=== PATIENT | male | born 1965 | race Caucasian/White ===

== ENCOUNTER 2019-08-04 12:30 | Emergency (ER) | payer BC, OTHER ==
[2019-08-04 12:43] VITALS: BP 131/89; PULSE 78
[2019-08-04] MEDS ORDERED: Albuterol/Ipratropium 3.0-0.5 MG/3 ML Neb Soln NEB ONE (13:15)
--- NOTE | 2019-08-04 13:27 | EDM.PDOC ---
ED HPI GENERAL MEDICAL PROBLEM - General Chief Complaint: Respiratory Problem Stated Complaint: COUGH/SOB Time Seen by Provider: 08/04/19 13:03 Source of Information: Reports: Patient, RN Notes Reviewed History Limitations: Reports: No Limitations - History of Present Illness INITIAL COMMENTS - FREE TEXT/NARRATIVE: Patient is a 53-year-old male who presents to the ED for his ongoing cough. Patient notes he was evaluated by a provider in our clinic roughly 2 weeks ago and was found to have an ear infection and some wheezing, he was given a round of azithromycin, and an albuterol inhaler. Patient states that he has been having to use his albuterol inhaler, but states it has not been working well for the last couple days. He notes that he has been wheezing, seems to be worse at night. He did have a productive cough yesterday with some yellowish phlegm, but the cough has been pretty dry today. He states that his ear did get better, but this cough has lingered. He is not complaining of any fevers or chills, more chest discomfort than chest pain due to the cough. He is not experiencing any nausea/vomiting/diarrhea, and has had no other like sick contacts. - Related Data Allergies Allergy/AdvReac Type Severity Reaction Status Date / Time No Known Allergies Allergy Verified 08/04/19 12:43 Home Meds: Home Meds Fish Oil/[place]-3 Fatty Acids [Fish Oil 1,000 MG] 1 gm PO DAILY 03/17/18 [History ] Meclizine [Antivert] 25 mg PO TID PRN 03/17/18 [History] Multivitamin [Daily Jhonatan] 1 tab PO DAILY 03/17/18 [History] Tamsulosin HCl 0.4 mg PO BEDTIME 03/17/18 [History] Cholecalciferol (Vitamin D3) [Vitamin D] 5,000 unit PO DAILY 12/06/18 [History] Cyanocobalamin (Vitamin B12) [Vitamin B12] 500 mcg PO DAILY 12/06/18 [History] Albuterol [Ventolin HFA] 2 puff .XX QID PRN #1 inhaler 08/04/19 [Rx] Ubidecarenone/Vitamin E [Co Q-10 50 MG Softgel] 1 cap PO DAILY 08/04/19 [History ] methylPREDNISolone [Medrol Dose Pack] 4 mg PO ASDIRECTED #1 dospk 08/04/19 [Rx] Past Medical History HEENT History: Reports: Impaired Vision Cardiovascular History: Reports: High Cholesterol Respiratory History: Reports: Sleep Apnea Other Respiratory History: seasonal allergies Gastrointestinal History: Reports: Other (See Below) Other Gastrointestinal History: gastric ulcer-1996 Genitourinary History: Reports: Prostate Disorder Other Genitourinary History: vasectomy Neurological History: Reports: Vertigo Endocrine/Metabolic History: Reports: Obesity/BMI 30+, Other (See Below) Other Endocrine/Metabolic History: metabolic X syndrome - Infectious Disease History Infectious Disease History: Reports: Chicken Pox - Past Surgical History HEENT Surgical History: Reports: Tonsillectomy GI Surgical History: Reports: EGD Social & Family History - Family History Family Medical History: Noncontributory - Tobacco Use Smoking Status *Q: Never Smoker Second Hand Smoke Exposure: No - Caffeine Use Caffeine Use: Reports: Coffee, Soda - Recreational Drug Use Recreational Drug Use: No - Living Situation & Occupation Living situation: Reports: Occupation: Employed ED ROS GENERAL - Review of Systems Review Of Systems: See Below Constitutional: Denies: Fever, Chills Respiratory: Reports: Wheezing, Cough, Sputum. Denies: Shortness of Breath Cardiovascular: Reports: Chest Pain (chest discomfort) GI/Abdominal: Denies: Abdominal Pain, Constipation, Diarrhea, Nausea, Vomiting ED EXAM, GENERAL - Physical Exam Exam: See Below Exam Limited By: No Limitations General Appearance: Alert, WD/WN, No Apparent Distress Eye Exam: Bilateral Eye: EOMI, Normal Inspection, PERRL Ears: Normal External Exam, Normal Canal, Hearing Grossly Normal, Normal TMs Nose: Normal Inspection Throat/Mouth: Normal Inspection, Normal Lips, Normal Teeth, Normal Gums, Normal Oropharynx, Normal Voice, No Airway Compromise Head: Atraumatic, Normocephalic Neck: Normal Inspection Respiratory/Chest: No Respiratory Distress, No Accessory Muscle Use, Chest Non- Tender, Rhonchi (throughout both lung rdz), Wheezing (tight, end expiratory wheezing throughout both lung rdz) Cardiovascular: Normal Peripheral Pulses, Regular Rate, Rhythm, No Edema, No Murmur Peripheral Pulses: 3+: Radial (L), Radial (R) GI/Abdominal: Normal Bowel Sounds, Soft, Non-Tender, No Distention, No Mass Extremities: Normal Inspection, Normal Capillary Refill Neurological: Alert, Oriented, Normal Cognition, No Motor/Sensory Deficits Psychiatric: Normal Affect, Normal Mood Skin Exam: Warm, Dry, Intact, Normal Color, No Rash Course - Vital Signs Last Recorded V/S: Last Vital Signs Temp 97.5 F 08/04/19 12:40 Pulse 78 08/04/19 12:40 Resp 22 H 08/04/19 12:40 BP 131/89 08/04/19 12:40 Pulse Ox 96 08/04/19 13:15 - Orders/Labs/Meds Orders: Active Orders 24 hr Category Date Time Status RT Aerosol Therapy [RC] ASDIRECTED Care 08/04/19 13:15 Ordered CBC WITH MANUAL DIFF [HEME] Stat Lab 08/04/19 13:06 Ordered Labs: Laboratory Tests 08/04/19 08/04/19 Range/Units 13:29 13:29 WBC 5.33 (4.23-9.07) K/mm3 RBC 5.00 (4.63-6.08) M/mm3 Hgb 14.8 (13.7-17.5) gm/dl Hct 44.6 (40.1-51.0) % MCV 89.2 (79.0-92.2) fl MCH 29.6 (25.7-32.2) pg MCHC 33.2 (32.2-35.5) g/dl RDW Std Deviation 42.8 (35.1-43.9) fL Plt Count 204 (163-337) K/mm3 MPV 9.2 L (9.4-12.3) fl Sodium 138 (136-145) mEq/L Potassium 4.3 (3.5-5.1) mEq/L Chloride 103 (98-107) mEq/L Carbon Dioxide 27 (21-32) mEq/L Anion Gap 12.3 (5-15) BUN 16 (7-18) mg/dL Creatinine 1.1 (0.7-1.3) mg/dL Est Cr Clr Drug Dosing 87.20 mL/min Estimated GFR (MDRD) > 60 (>60) mL/min BUN/Creatinine Ratio 14.5 (14-18) Glucose 112 H (74-106) mg/dL Calcium 9.0 (8.5-10.1) mg/dL Total Bilirubin 0.5 (0.2-1.0) mg/dL AST 24 (15-37) U/L ALT 42 (16-63) U/L Alkaline Phosphatase 66 (46-116) U/L Total Protein 7.8 (6.4-8.2) g/dl Albumin 3.8 (3.4-5.0) g/dl Globulin 4.0 gm/dL Albumin/Globulin Ratio 1.0 (1-2) Meds: Medications Discontinued Medications Generic Name Dose Route Start Last Admin Trade Name Freq PRN Reason Stop Dose Admin Albuterol/Ipratropium 3 ml 08/04/19 13:15 08/04/19 14:30 Duoneb 3.0-0.5 Mg/3 Ml NEB 08/04/19 13:16 3 ml ONETIME ONE Administration - Re-Assessments/Exams Free Text/Narrative Re-Assessment/Exam: 08/04/19 13:28 Patient presents to the ED for evaluation of ongoing cough, and wheezing. I have ordered a DuoNeb, chest x-ray, CBC and a CMP for evaluation and management. 08/04/19 14:30 Patient is chest x-ray is officially read by radiology, no consolidation or infiltrative processes noted. The patient's laboratory evaluation is also coming back fairly unremarkable, no elevated white blood cell count, metabolic panel looks okay. Will discharge the patient home with a course of steroids and another albuterol inhaler at this time. Departure - Departure Time of Disposition: 14:31 Disposition: Home, Self-Care 01 Condition: Fair Clinical Impression: Bronchitis - Discharge Information *PRESCRIPTION DRUG MONITORING PROGRAM REVIEWED*: No *COPY OF PRESCRIPTION DRUG MONITORING REPORT IN PATIENT ABBEY: No Prescriptions: Albuterol [Ventolin HFA] 2 puff .XX QID PRN #1 inhaler PRN Reason: cough/sob methylPREDNISolone [Medrol Dose Pack] 4 mg PO ASDIRECTED #1 dospk Instructions: Acute Bronchitis, Adult, [id number] Referrals: Polina Franz PA-C [Primary Care Provider] - Forms: ED Department Discharge Additional Instructions: You were evaluated in the ER today regarding your cough/shortness of breath/ wheezing. You had a chest x-ray, some laboratory evaluation and a nebulizer at today's visit. Chest x-ray shows no sign of pneumonia, and your laboratory evaluation was unremarkable. The nebulizer did seem to help provide you relieve some of your symptoms. It is likely that you are suffering from bronchitis, you have been provided with another albuterol inhaler, and a course of steroids, please take as directed. Recommend that you use the albuterol inhaler, 2 puffs 4 times a day for the next few days, then 2 puffs 3 times a day for the next few days, then 2 puffs 2 times a day, until you need it on a more of an as-needed basis. Please return to the ER at any time if symptoms should change or worsen. Sepsis Event Note - Evaluation Sepsis Screening Result: No Definite Risk - Focused Exam Vital Signs: Vital Signs Temp Pulse Resp BP Pulse Ox Pulse Ox 08/04/19 13:15 96 08/04/19 12:40 97.5 F 78 22 H 131/89 98 Date Exam was Performed: 08/04/19 Time Exam was Performed: 14:55 - My Orders Last 24 Hours: My Active Orders 08/04/19 13:06 CBC WITH MANUAL DIFF [HEME] Stat 08/04/19 13:15 RT Aerosol Therapy [RC] ASDIRECTED - Assessment/Plan Last 24 Hours: My Active Orders 08/04/19 13:06 CBC WITH MANUAL DIFF [HEME] Stat 08/04/19 13:15 RT Aerosol Therapy [RC] ASDIRECTED
--- NOTE | 2019-08-04 14:05 | CR ---
Chest: Two views of the chest were obtained. Comparison: No prior chest imaging is available. Heart size and mediastinum are normal. Lungs are clear with no acute parenchymal change. Minimal scoliosis is noted within the spine. Impression: 1. Nothing acute is appreciated on two-view chest x-ray. Diagnostic code #2 Study was dictated in MDT
== END 2019-08-04 15:16 | disposition home or self-care (01) ==
LOC: JD.ED 12:30
DX: J40 Bronchitis, not specified as acute or chronic (principal); E66.9 Obesity, unspecified; Z68.42 Body mass index [BMI] 45.0-49.9, adult
CPT/HCPCS: 36415; 71046; 71046-26; 80053; 85007; 85027; 94640; 99284-25; J7620-GY

== ENCOUNTER 2019-08-04 20:29 | Emergency (ER) | payer OTHER ==
[2019-08-04 20:39] VITALS: BP 139/79; PULSE 74
--- NOTE | 2019-08-04 21:13 | EDM.PDOC ---
ED HPI GENERAL MEDICAL PROBLEM - General Chief Complaint: Respiratory Problem Stated Complaint: COUGH SOB Time Seen by Provider: 08/04/19 20:49 Source of Information: Reports: Patient, Family (), Old Records (ED visit earlier today) History Limitations: Reports: No Limitations - History of Present Illness INITIAL COMMENTS - FREE TEXT/NARRATIVE: Mr. Michael is a very pleasant 53-year-old man with a past medical history significant for BPH, allergic rhinitis, and untreated dyslipidemia, who, medical records indicate, was seen in this ED earlier today with a complaint at that time of ear pain and wheezing 2 weeks earlier, treated with azithromycin and an albuterol inhaler. He reported that his wheezing seemed worse at night, and that the albuterol did not seem to be working. He then developed a cough productive of yellowish sputum yesterday. He denied fever or chills, nausea, vomiting, or diarrhea. He was found to be hemodynamically stable, afebrile, saturating 96% on room air. His examination found rhonchi and wheezing throughout his lungs. Work-up included a CBC, CMP, and a chest x-ray, which was read by the radiologist. His entire work-up was unremarkable. He was diagnosed with acute bronchitis, treated with an albuterol neb here in the ED, then discharged home with prescriptions for an albuterol MDI and a Medrol Dosepak. The patient now returns, stating that he felt better after he received the albuterol neb here in the ED, but since then, his symptoms have worsened, and he is not getting any relief with the albuterol. No new symptoms. Here in the ED, the patient is again found to be hemodynamically stable, afebrile, saturating 96% on room air. The patient's PCP is LI Alexander, although he saw LI Cuevas, 2 weeks ago. He did not receive an influenza vaccine this season and declined an offer to receive one here today. - Related Data Allergies Allergy/AdvReac Type Severity Reaction Status Date / Time No Known Allergies Allergy Verified 08/04/19 12:43 Home Meds: Home Meds Fish Oil/[place]-3 Fatty Acids [Fish Oil 1,000 MG] 1 gm PO DAILY 03/17/18 [History ] Meclizine [Antivert] 25 mg PO TID PRN 03/17/18 [History] Multivitamin [Daily Jhonatan] 1 tab PO DAILY 03/17/18 [History] Tamsulosin HCl 0.4 mg PO BEDTIME 03/17/18 [History] Cholecalciferol (Vitamin D3) [Vitamin D] 5,000 unit PO DAILY 12/06/18 [History] Cyanocobalamin (Vitamin B12) [Vitamin B12] 500 mcg PO DAILY 12/06/18 [History] Albuterol [Ventolin HFA] 2 puff .XX QID PRN #1 inhaler 08/04/19 [Rx] Ubidecarenone/Vitamin E [Co Q-10 50 MG Softgel] 1 cap PO DAILY 08/04/19 [History ] methylPREDNISolone [Medrol Dose Pack] 4 mg PO ASDIRECTED #1 dospk 08/04/19 [Rx] Past Medical History HEENT History: Reports: Allergic Rhinitis, Impaired Vision Cardiovascular History: Reports: High Cholesterol (untreated) Respiratory History: Reports: Sleep Apnea Gastrointestinal History: Reports: DAVID (1996) Genitourinary History: Reports: BPH Endocrine/Metabolic History: Reports: Obesity/BMI 30+ - Infectious Disease History Infectious Disease History: Reports: Chicken Pox - Past Surgical History HEENT Surgical History: Reports: Oral Surgery (wisdom teeth extraction), Tonsillectomy GI Surgical History: Reports: EGD Male Surgical History: Reports: Vasectomy Social & Family History - Family History Family Medical History: Noncontributory - Tobacco Use Smoking Status *Q: Never Smoker Second Hand Smoke Exposure: No - Caffeine Use Caffeine Use: Reports: Coffee, Soda - Alcohol Use Alcohol Use History: Yes Alcohol Use Frequency: Socially - Recreational Drug Use Recreational Drug Use: No - Living Situation & Occupation Living situation: Reports: , with Spouse, with Family (Daughter, son-in- law, grandson) 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 ED EXAM, GENERAL - Physical Exam Exam: See Below Exam Limited By: No Limitations General Appearance: Alert, WD/WN, No Apparent Distress Eye Exam: Bilateral Eye: EOMI, Normal Inspection Ears: Normal External Exam, Normal Canal, Hearing Grossly Normal, Normal TMs Nose: Normal Inspection, Normal Mucosa, No Blood Throat/Mouth: Normal Inspection, Normal Lips, Normal Teeth, Normal Gums, Normal Oropharynx, Normal Voice, No Airway Compromise Head: Atraumatic, Normocephalic Neck: Normal Inspection, Supple, Non-Tender, Full Range of Motion. No: Lymphadenopathy (L), Lymphadenopathy (R) Respiratory/Chest: No Respiratory Distress, Lungs Clear, Normal Breath Sounds, No Accessory Muscle Use, Rhonchi, Wheezing. No: Decreased Breath Sounds, Crackles, Stridor, Prolonged Expiration Cardiovascular: Normal Peripheral Pulses, Regular Rate, Rhythm, No Edema, No Gallop, No JVD, No Murmur, No Rub Peripheral Pulses: 4+: Radial (L), Radial (R) GI/Abdominal: Normal Bowel Sounds, Soft, Non-Tender, No Organomegaly, No Distention, No Abnormal Bruit, No Mass (Male) Exam: Deferred Rectal (Males) Exam: Deferred Back Exam: Normal Inspection, Full Range of Motion, NT Extremities: Normal Inspection, Normal Range of Motion, No Pedal Edema, Normal Capillary Refill Neurological: Alert, Oriented, Normal Cognition, No Motor/Sensory Deficits Psychiatric: Normal Affect Skin Exam: Warm, Dry, Intact, Normal Color, No Rash Course - Vital Signs Last Recorded V/S: Last Vital Signs Temp 36.4 C 08/04/19 20:36 Pulse 74 08/04/19 20:36 Resp 20 08/04/19 20:36 BP 139/79 08/04/19 20:36 Pulse Ox 96 08/04/19 20:36 - Re-Assessments/Exams Free Text/Narrative Re-Assessment/Exam: 08/04/19 21:08 With a cough productive of yellowish sputum, wheezing made worse when supine, dyspnea, and a negative work-up earlier today including a normal white count and a negative chest x-ray, along with being afebrile with 96% oxygenation on room air, I agree with LI Newton's assessment from earlier today that the patient is suffering from bronchitis. Unfortunately, there are no medicines that have been shown to be of benefit with bronchitis - not NSAIDs, steroids, albuterol, ipratropium, antibiotics, or cough syrups, and all have been extensively tried and tested. Unfortunately, the only treatment for bronchitis is time. Typically, the illness resolves in 2 to 3 weeks. This was explained to the patient and his , who expressed understanding. Departure - Departure Time of Disposition: 21:13 Disposition: Home, Self-Care 01 Condition: Good Clinical Impression: Acute bronchitis - Discharge Information *PRESCRIPTION DRUG MONITORING PROGRAM REVIEWED*: Not Applicable *COPY OF PRESCRIPTION DRUG MONITORING REPORT IN PATIENT ABBEY: Not Applicable Referrals: Polina Franz PA-C [Primary Care Provider] - Additional Instructions: You were seen in the emergency room for wheezing, a cough, and shortness of breath. Based on your history, physical exam, and earlier blood work and chest x-ray, you are most likely suffering from bronchitis = a viral infection of the tubes that lead into your lungs. Unfortunately, there are no medicines to treat bronchitis - it will have to run its course, which typically takes 2 to 3 weeks. We recommend that you discontinue the albuterol and steroids that you were prescribed this morning, as they will be of no benefit. Consider sleeping in a recliner, as lying flat will tend to worsen your symptoms. If any other problems, please do not hesitate to return to the ER. Sepsis Event Note - Evaluation Sepsis Screening Result: No Definite Risk - Focused Exam Vital Signs: Vital Signs Temp Pulse Resp BP Pulse Ox 08/04/19 20:36 36.4 C 74 20 139/79 96 Date Exam was Performed: 08/04/19 Time Exam was Performed: 21:08
== END 2019-08-04 21:30 | disposition home or self-care (01) ==
LOC: JD.ED 20:29
DX: J20.9 Acute bronchitis, unspecified (principal); E66.9 Obesity, unspecified; Z68.41 Body mass index [BMI] 40.0-44.9, adult
CPT/HCPCS: 99284

== ENCOUNTER 2020-04-17 08:21 | Emergency (ER) | payer OTHER ==
[2020-04-17 08:50] VITALS: BP 125/84; PULSE 66
[2020-04-17] MEDS ORDERED: Sodium Chloride 0.9% 10 ML Syringe FLUSH PRN (08:53)
--- NOTE | 2020-04-17 08:58 | EDM.PDOC ---
ED HPI GENERAL MEDICAL PROBLEM - General Chief Complaint: Respiratory Problem Stated Complaint: SOB AND HEART ISSUES REFERRED BY CLINIC Time Seen by Provider: 04/17/20 08:45 Source of Information: Reports: Patient History Limitations: Reports: No Limitations - History of Present Illness INITIAL COMMENTS - FREE TEXT/NARRATIVE: 54-year-old male presents to the ED for evaluation of shortness of breath on minimal exertion and wheezing. Patient reports he was in [place] last week over the holidays for . He estimates altitude of the cabin was around 6000 feet. On Friday evening he developed shortness of breath and went to the local hospital where they felt he may have high-altitude illness. He was treated with intravenous Lasix and a dose of dexamethasone intravenously and then given an oral dose of dexamethasone the following morning. He reports he got home last night. This morning he feels a little more short of breath on minimal exertion than normal. He does have a nonproductive cough. Nasally congested. Afebrile. Bringing up very minimal amount of sputum. No fever or chills. He did have a COVID-19 screen out in [place] which was reportedly -2 days ago. Patient appreciates that he has been experiencing mild dyspnea on exertion for the better part of a month or 6 weeks. No orthopnea or PND. Known no known history of cardiac disease. He appreciated edema both lower extremities last week. Feels they are better today. Patient has no history of asthma. No previous problems with high-altitude sickness. Onset: Gradual Onset Date: 04/14/20 Duration: Day(s):, Getting Worse Location: Reports: Face (Nasal congestion with postnasal drip.), Chest (Shortness of breath with minimal sputum production dry cough.) Quality: Reports: Other Severity: Moderate Improves with: Reports: Rest Worsens with: Reports: Other Context: Denies: Activity, Exercise (Symptoms worsen with exertion or walking.), Lifting, Sick Contact, Trauma, Other Associated Symptoms: Reports: Cough (Animal sputum production.), cough w sputum, Shortness of Breath. Denies: No Other Symptoms, Confusion ( Dry nonproductive cough.), Chest Pain, Diaphoresis, Fever/Chills, Headaches, Loss of Appetite, Malaise, Nausea/Vomiting, Rash, Seizure, Syncope, Weakness Treatments SHOW HOST: Reports: Other (see below) (Dexamethasone early Friday morning 2 days ago as prescribed by physician in [place].) - Related Data Allergies Allergy/AdvReac Type Severity Reaction Status Date / Time No Known Allergies Allergy Verified 04/17/20 08:51 Home Meds: Home Meds Meclizine [Antivert] 25 mg PO TID PRN 03/17/18 [History] Multivitamin [Daily Jhonatan] 1 tab PO DAILY 03/17/18 [History] Tamsulosin HCl 0.4 mg PO BEDTIME 03/17/18 [History] Cholecalciferol (Vitamin D3) [Vitamin D] 5,000 unit PO DAILY 12/06/18 [History] Cyanocobalamin (Vitamin B12) [Vitamin B12] 500 mcg PO DAILY 12/06/18 [History] Ubidecarenone/Vitamin E [Co Q-10 50 MG Softgel] 1 cap PO DAILY 08/04/19 [History] Albuterol Sulfate [Albuterol Sulfate Hfa] 18 gm IH Q3H PRN #1 hfa.aer.ad 04/17/20 [Rx] dexAMETHasone [Decadron] 6 mg PO ASDIRECTED #18 tablet 04/17/20 [Rx] Past Medical History HEENT History: Reports: Allergic Rhinitis, Impaired Vision, Other (See Below) (Chronic problems with benign positional vertigo.) Cardiovascular History: Reports: High Cholesterol (untreated) Respiratory History: Reports: Sleep Apnea Other Respiratory History: seasonal allergies Gastrointestinal History: Reports: PUD (1996) Other Gastrointestinal History: gastric ulcer-1996 Genitourinary History: Reports: BPH Other Genitourinary History: vasectomy Musculoskeletal History: Reports: None Neurological History: Reports: Vertigo Psychiatric History: Reports: None Endocrine/Metabolic History: Reports: Obesity/BMI 30+ Other Endocrine/Metabolic History: metabolic X syndrome Hematologic History: Reports: None Immunologic History: Reports: None Oncologic (Cancer) History: Reports: None Dermatologic History: Reports: None - Infectious Disease History Infectious Disease History: Reports: Chicken Pox - Past Surgical History HEENT Surgical History: Reports: Oral Surgery (wisdom teeth extraction), Tonsillectomy GI Surgical History: Reports: EGD Male Surgical History: Reports: Vasectomy Social & Family History - Family History Family Medical History: No Pertinent Family History - Caffeine Use Caffeine Use: Reports: Coffee, Soda - Living Situation & Occupation Living situation: Reports: , with Spouse, with Family (Daughter, son-in-law, grandson) 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 Denies: Fever, Chills, Weakness, Night Sweats, Diaphoresis, Decreased Appetite, Weight Loss, Weight Gain HEENT: Reports: Other (Nasal congestion at this time) Respiratory: Reports: Shortness of Breath, Wheezing, Cough. Denies: Pleuritic Chest Pain, Sputum (Nonproductive), Hemoptysis Cardiovascular: Reports: Dyspnea on Exertion (Always has a little bit of swelling lower extremities.), Edema. Denies: Chest Pain, Blood Pressure Problem, Claudication, Lightheadedness, Orthopnea, Palpitations Endocrine: Reports: No Symptoms GI/Abdominal: Reports: No Symptoms, Other (Occasional heartburn.). Denies: Diarrhea, Nausea, Vomiting : Reports: Frequency, Other (Nocturia usually x1. Does have a diagnosis of BPH Is on Flomax daily.) Musculoskeletal: Reports: No Symptoms Skin: Reports: No Symptoms Neurological: Reports: No Symptoms Psychiatric: Reports: No Symptoms Hematologic/Lymphatic: Reports: No Symptoms Immunologic: Reports: No Symptoms ED EXAM, GENERAL - Physical Exam Exam: See Below Exam Limited By: No Limitations General Appearance: Alert, WD/WN, No Apparent Distress, Other (Temperature is 36.2 with a heart rate of 66 in sinus respiratory is 18 with O2 sats of 100% room air. BP 125/84. Patient does appear to have some facial edema pick involving his upper or lower eyelids.) Eye Exam: Bilateral Eye: Normal Inspection (No scleral icterus or blepharal pallor.), PERRL Ears: Normal TMs Throat/Mouth: Normal Inspection, Normal Lips, Normal Teeth, Normal Oropharynx Head: Atraumatic, Normocephalic Neck: Normal Inspection, Supple, Non-Tender, Full Range of Motion. No: Carotid Bruit, Lymphadenopathy (L), Lymphadenopathy (R) Respiratory/Chest: No Respiratory Distress, Lungs Clear, Decreased Breath Sounds (Decreased breath sounds to both lower lung rdz.), Wheezing. No: Rhonchi Cardiovascular: Normal Peripheral Pulses, Regular Rate, Rhythm, No Gallop, No Murmur, Other (Large bowl neck. No appreciable JVD.). No: No Edema Peripheral Pulses: 2+: Posterior Tibial (L), Posterior Tibial (R), Dorsalis Pedis (L), Dorsalis Pedis (R), 3+: Carotid (L), Carotid (R) GI/Abdominal: Normal Bowel Sounds, Soft, Non-Tender, No Organomegaly Back Exam: Normal Inspection, Full Range of Motion. No: CVA Tenderness (L), CVA Tenderness (R) Extremities: Normal Inspection, Pedal Edema (2+ pitting edema both lower extremities up to mid tib-fib. Slightly worse on the right this morning.) Neurological: Alert, Oriented, CN II-XII Intact, Normal Cognition Psychiatric: Normal Affect, Normal Mood Skin Exam: Warm, Dry, Intact, Normal Color, No Rash Course - Vital Signs Last Recorded V/S: Last Vital Signs Temp 36.2 C 04/17/20 08:40 Pulse 66 04/17/20 08:40 Resp 18 04/17/20 08:40 BP 125/84 04/17/20 08:40 Pulse Ox 100 04/17/20 11:52 - Orders/Labs/Meds Orders: Active Orders 24 hr Category Date Time Status CORONAVIRUS COVID-19 PCR PHL Stat Lab 04/17/20 10:10 Received Peripheral IV Insertion Adult [OM.PC] Stat Oth 04/17/20 08:54 Ordered Labs: Laboratory Tests 04/17/20 04/17/20 04/17/20 Range/Units 09:25 09:25 09:25 WBC 6.95 (4.23-9.07) K/mm3 RBC 4.86 (4.63-6.08) M/mm3 Hgb 14.6 (13.7-17.5) gm/dl Hct 43.6 (40.1-51.0) % MCV 89.7 (79.0-92.2) fl MCH 30.0 (25.7-32.2) pg MCHC 33.5 (32.2-35.5) g/dl RDW Std Deviation 43.6 (35.1-43.9) fL Plt Count 176 (163-337) K/mm3 MPV 9.7 (9.4-12.3) fl Neut % (Auto) 49.9 (34.0-67.9) % Lymph % (Auto) 30.2 (21.8-53.1) % [place] % (Auto) 10.4 (5.3-12.2) % Eos % (Auto) 8.9 H (0.8-7.0) Baso % (Auto) 0.6 (0.1-1.2) % Neut # (Auto) 3.47 (1.78-5.38) K/mm3 Lymph # (Auto) 2.10 (1.32-3.57) K/mm3 [place] # (Auto) 0.72 (0.30-0.82) K/mm3 Eos # (Auto) 0.62 H (0.04-0.54) K/mm3 Baso # (Auto) 0.04 (0.01-0.08) K/mm3 PT 10.3 (9.7-12.0) SECONDS INR 0.96 APTT 27.1 (21.7-31.4) SECONDS D-Dimer, Quantitative (0.19-0.50) mg/L Sodium 139 (136-145) mEq/L Potassium 3.9 (3.5-5.1) mEq/L Chloride 104 (98-107) mEq/L Carbon Dioxide 26 (21-32) mEq/L Anion Gap 12.9 (5-15) BUN 21 H (7-18) mg/dL Creatinine 1.2 (0.7-1.3) mg/dL Est Cr Clr Drug Dosing 79.04 mL/min Estimated GFR (MDRD) > 60 (>60) mL/min BUN/Creatinine Ratio 17.5 (14-18) Glucose 91 (74-106) mg/dL Calcium 8.3 L (8.5-10.1) mg/dL Magnesium 1.9 (1.8-2.4) mg/dl Ferritin (26-388) ng/ml Total Bilirubin 0.3 (0.2-1.0) mg/dL AST 10 L (15-37) U/L ALT 32 (16-63) U/L Alkaline Phosphatase 59 (46-116) U/L Lactate Dehydrogenase 168 (85-227) U/L CK-MB (CK-2) 1.6 (0-3.6) ng/ml Troponin I < 0.017 (0.00-0.056) ng/mL C-Reactive Protein 0.4 (<1.0) mg/dL NT-Pro-B Natriuret Pep (0-125) pg/mL Total Protein 7.0 (6.4-8.2) g/dl Albumin 3.4 (3.4-5.0) g/dl Globulin 3.6 gm/dL Albumin/Globulin Ratio 0.9 L (1-2) 04/17/20 04/17/20 04/17/20 Range/Units 09:25 09:25 09:25 WBC (4.23-9.07) K/mm3 RBC (4.63-6.08) M/mm3 Hgb (13.7-17.5) gm/dl Hct (40.1-51.0) % MCV (79.0-92.2) fl MCH (25.7-32.2) pg MCHC (32.2-35.5) g/dl RDW Std Deviation (35.1-43.9) fL Plt Count (163-337) K/mm3 MPV (9.4-12.3) fl Neut % (Auto) (34.0-67.9) % Lymph % (Auto) (21.8-53.1) % [place] % (Auto) (5.3-12.2) % Eos % (Auto) (0.8-7.0) Baso % (Auto) (0.1-1.2) % Neut # (Auto) (1.78-5.38) K/mm3 Lymph # (Auto) (1.32-3.57) K/mm3 [place] # (Auto) (0.30-0.82) K/mm3 Eos # (Auto) (0.04-0.54) K/mm3 Baso # (Auto) (0.01-0.08) K/mm3 PT (9.7-12.0) SECONDS INR APTT (21.7-31.4) SECONDS D-Dimer, Quantitative 0.43 (0.19-0.50) mg/L Sodium (136-145) mEq/L Potassium (3.5-5.1) mEq/L Chloride (98-107) mEq/L Carbon Dioxide (21-32) mEq/L Anion Gap (5-15) BUN (7-18) mg/dL Creatinine (0.7-1.3) mg/dL Est Cr Clr Drug Dosing mL/min Estimated GFR (MDRD) (>60) mL/min BUN/Creatinine Ratio (14-18) Glucose (74-106) mg/dL Calcium (8.5-10.1) mg/dL Magnesium (1.8-2.4) mg/dl Ferritin 137 (26-388) ng/ml Total Bilirubin (0.2-1.0) mg/dL AST (15-37) U/L ALT (16-63) U/L Alkaline Phosphatase (46-116) U/L Lactate Dehydrogenase (85-227) U/L CK-MB (CK-2) (0-3.6) ng/ml Troponin I (0.00-0.056) ng/mL C-Reactive Protein (<1.0) mg/dL NT-Pro-B Natriuret Pep 54 (0-125) pg/mL Total Protein (6.4-8.2) g/dl Albumin (3.4-5.0) g/dl Globulin gm/dL Albumin/Globulin Ratio (1-2) Meds: Medications Discontinued Medications Generic Name Dose Route Start Last Admin Trade Name Freq PRN Reason Stop Dose Admin Albuterol/Ipratropium 3 ml 04/17/20 11:52 04/17/20 12:08 Duoneb 3.0-0.5 Mg/3 Ml NEB 3 ml Q4H PRN Administration Shortness Of Breath/wheezing Furosemide 40 mg 04/17/20 09:34 04/17/20 11:03 Lasix IVPUSH 04/17/20 09:35 40 mg NOW ONE Administration Sodium Chloride 10 ml 04/17/20 08:53 04/17/20 11:04 Saline Flush FLUSH 10 ml ASDIRECTED PRN Administration Keep Vein Open - Radiology Interpretation Free Text/Narrative:: 54-year-old male presents to the ED for evaluation of nasal congestion shortness of breath on minimal exertion nonproductive cough with wheezing. States he just got home from [place] where [place] the [place] 6 days for the . On Friday evening he had to leave the cabin and go to the clinic emergency room and they felt he may have high- altitude sickness although he reports the cabin is probably around 6000 feet elevation. He has been there many times in the past with no problems and. He is nasally congested with retention of his sense of taste and smell. On exam he is wheezing throughout both lung rdz. Does have some dependent edema both lower extremities up to mid tib-fib. Face appears to be edematous as well particularly upper eyelids. Of note he did receive a dose of intravenous steroids as well as an oral steroid to take on the following morning Friday, February 13. No orthopnea last night. No history of asthma. Plan patient will have cardiac work-up to make sure that he does not have congestive heart failure causing his wheeze. COVID-19 screen will be a send out to [facility] since his O2 sats are 100% on room air. - Re-Assessments/Exams Free Text/Narrative Re-Assessment/Exam: 04/17/20 09:33 x-ray reveals marked cardiomegaly. Diffuse vascular congestion pattern no pleural effusion no pneumothorax. Clinically patient has a thoracic and abdominal aortic aneurysm. Mild infiltrates RLL. Consider Covid viral pneumonia. 04/17/20 11:48 White count is normal at 6.95. Neutrophil count is 50%. Hemoglobin 14.6 with hematocrit of 43.6. Platelet count 176,000. PT is 10.3 with an INR of 0.96. PTT is 27.1 D-dimer is normal at 0.43. Sodium is 139 with a potassium of 3.9. Chloride 104 with a bicarb of 26. Anion gap is 12.9. BUN is 21 with a creatinine of 1.2 and a GFR greater than 60. Glucose is 91 with a calcium of 8.3 magnesium is 1.9. Serum ferritin is 137. Liver function normal. LDH is 168. CK-MB fraction is normal at 1.6. Troponin I is less than 0.017. C-reactive protein is 0.4. BNP is 54. Covid 19 screen has been sent to [facility]. 04/17/20 12:55: Clinically there is no evidence of COVID-19 at this time with normal LDH and serum ferritin levels. Patient is definitely wheezing throughout both lung rdz. There is opposition to giving patient's aerosolized medication with the possibility of COVID-19 illness. Patient will be started on albuterol metered-dose inhaler 2 puffs every 3 hours as needed for shortness of breath and/or wheezing. He will be placed on dexamethasone 6 mg twice daily for 6 days then 6 mg once daily only in the morning for another 6 days. He is to self isolate for the next 48 to 72 hours until [facility] results out his COVID-19 screen which I believe will be negative. Patient will return to the ED if he develops more shortness of breath or condition worsens in the next 48 to 72 hours. Departure - Departure Time of Disposition: 11:59 Disposition: Home, Self-Care 01 Condition: Fair Clinical Impression: Viral bronchitis - Discharge Information *PRESCRIPTION DRUG MONITORING PROGRAM REVIEWED*: Not Applicable *COPY OF PRESCRIPTION DRUG MONITORING REPORT IN PATIENT ABBEY: Not Applicable Prescriptions: Albuterol Sulfate [Albuterol Sulfate Hfa] 18 gm IH Q3H PRN #1 hfa.aer.ad PRN Reason: wheezing/dyspnea. dexAMETHasone [Decadron] 6 mg PO ASDIRECTED #18 tablet Instructions: Viral Respiratory Infection Test Referrals: Polina Franz PA-C [Primary Care Provider] - Forms: ED Department Discharge Additional Instructions: Evaluation in the emergency room done today due to presentation with due to shortness of breath with wheezing. No associated fever identified. Mild nasal congestion. Lungs are wheezy on examination. Chest x-ray shows that your heart is mildly enlarged. It did not show any evidence of pneumonia at this time. There is no clinical evidence of congestive heart failure and lab tests for any problems with your heart were all negative i.e. no signs of heart attack having occurred. Concern is for possible COVID-19 illness causing acute bronchitis shortness of breath and wheezing. COVID-19 test has been collected and sent to [facility] for evaluation. Also will be known in about 48 to 72 hours. In the meantime you are suggested to self isolate with family. 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 Treatment is to use albuterol inhaler 2 puffs every 3 hours as needed for relief of shortness of breath and/or wheezing. Start dexamethasone 6 mg tablet a day it should be taken usually with breakfast and supper for 6 days then once in the morning only for another 6 days to relieve inflammation in the lungs. Turn to medical care if you continue to become increasingly short of breath. It is strongly suspect that you may have COVID-19 illness since it is very very prevalent at this point time. Sepsis Event Note (ED) - Evaluation Sepsis Screening Result: No Definite Risk - Focused Exam Vital Signs: Vital Signs Temp Pulse Resp BP Pulse Ox Pulse Ox 04/17/20 11:52 100 04/17/20 08:40 36.2 C 66 18 125/84 100 - My Orders Last 24 Hours: My Active Orders 04/17/20 08:54 Peripheral IV Insertion Adult [OM.PC] Stat 04/17/20 10:10 CORONAVIRUS COVID-19 PCR PHL Stat - Assessment/Plan Last 24 Hours: My Active Orders 04/17/20 08:54 Peripheral IV Insertion Adult [OM.PC] Stat 04/17/20 10:10 CORONAVIRUS COVID-19 PCR PHL Stat
[2020-04-17] MEDS ORDERED: Furosemide 40 MG/4 ML VIAL IVPUSH ONE (09:34)
[2020-04-17] MEDS ORDERED: Albuterol/Ipratropium 3.0-0.5 MG/3 ML Neb Soln NEB PRN (11:52)
--- NOTE | 2020-04-17 13:38 | CR ---
PROCEDURE INFORMATION: Exam: XR Chest, 1 View Exam date and time: 04/17/2020 8:46 AM Age: 54 years old Clinical indication: Cough TECHNIQUE: Imaging protocol: XR of the chest Views: 1 view. COMPARISON: DX Chest 2V 08/04/2019 1:14 PM FINDINGS: Lungs: Unremarkable. No consolidation. Pleural space: Unremarkable. No pleural effusion. No pneumothorax. Heart/Mediastinum: Heart size is moderately prominent. Bones/joints: Unremarkable. IMPRESSION: Moderate cardiomegaly. No pulmonary edema or pneumonia present. Thank you for allowing us to participate in the care of your patient. Dictated and Authenticated by: Caio Moya MD 04/17/2020 10:22 AM Central Time ([place] & [place]) LARRY
== END 2020-04-17 12:32 | disposition home or self-care (01) ==
LOC: JD.ED 08:21
DX: J20.8 Acute bronchitis due to other specified organisms (principal); N40.0 Benign prostatic hyperplasia without lower urinary tract symptoms; E66.9 Obesity, unspecified; Z68.41 Body mass index [BMI] 40.0-44.9, adult; Z79.899 Other long term (current) drug therapy
CPT/HCPCS: 36415; 71045; 80053; 82553; 82728; 83615; 83735; 83880; 84484; 85025; 85379; 85610; 85730; 86140; 87635; 93005; 94640; 96374; 99285; J1940; 93010; 99284; J7620-GY; U0002

== ENCOUNTER 2020-08-20 10:24 | Emergency (ER) | payer OTHER ==
--- NOTE | 2020-08-20 10:48 | EDM.PDOC ---
ED HPI GENERAL MEDICAL PROBLEM - General Chief Complaint: Respiratory Problem Stated Complaint: ASTHMA Time Seen by Provider: 08/20/20 10:47 - History of Present Illness INITIAL COMMENTS - FREE TEXT/NARRATIVE: 54-year-old male presents the emergency room with what he believes is worsening asthma. Patient has had increasing difficulty breathing for the last week. The patient does not have a lifelong history of asthma and in fact has never been officially diagnosed with asthma. His breathing problems were first noted this last year shortly before giving when he was traveling he was diagnosed with reactive airway disease in one of the pounds he was visiting at the local emergency room. He did pretty well after that treatment however again this last July approximately the he was seen in emergency room in [facility] thought to have reactive airway disease he was put on inhalers and prednisone. He did really well after this until about a week ago he tried to tough it out. He was seen in the clinic couple of days ago started on Advair in addition to his as needed albuterol. But this is not helped yet. His regular healthcare provider has done pulmonary function test results of this is pending, he also had a echocardiogram results of this is pending. 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 He has no known exposure to Covid. - Related Data Allergies Allergy/AdvReac Type Severity Reaction Status Date / Time No Known Allergies Allergy Verified 08/20/20 10:37 Home Meds: Home Meds Multivitamin [Daily Jhonatan] 1 tab PO DAILY 03/17/18 [History] Cholecalciferol (Vitamin D3) [Vitamin D] 5,000 unit PO DAILY 12/06/18 [History] Cyanocobalamin (Vitamin B12) [Vitamin B12] 500 mcg PO DAILY 12/06/18 [History] Ubidecarenone/Vitamin E [Co Q-10 50 MG Softgel] 1 cap PO DAILY 08/04/19 [History] Albuterol Sulfate [Albuterol Sulfate Hfa] 18 gm IH Q3H PRN #1 hfa.aer.ad 04/17/20 [Rx] Fluticasone Propionate [Flovent] 1 puff INH BID 08/20/20 [History] predniSONE [Prednisone] 20 mg PO ASDIRECTED #20 tablet 08/20/20 [Rx] Past Medical History HEENT History: Reports: Allergic Rhinitis, Impaired Vision, Other (See Below) Cardiovascular History: Reports: High Cholesterol Respiratory History: Reports: Asthma, Sleep Apnea Other Respiratory History: seasonal allergies, wears C-PAP. Gastrointestinal History: Reports: PUD Other Gastrointestinal History: gastric ulcer-1996 Genitourinary History: Reports: BPH, Prostate Disorder Other Genitourinary History: vasectomy Musculoskeletal History: Reports: None Neurological History: Reports: Vertigo Psychiatric History: Reports: None Endocrine/Metabolic History: Reports: Obesity/BMI 30+ Other Endocrine/Metabolic History: metabolic X syndrome Hematologic History: Reports: None Immunologic History: Reports: None Oncologic (Cancer) History: Reports: None Dermatologic History: Reports: None - Infectious Disease History Infectious Disease History: Reports: Chicken Pox - Past Surgical History Head Surgeries/Procedures: Reports: None HEENT Surgical History: Reports: Oral Surgery, Tonsillectomy Cardiovascular Surgical History: Reports: None GI Surgical History: Reports: EGD Male Surgical History: Reports: Vasectomy Musculoskeletal Surgical History: Reports: None Oncologic Surgical History: Reports: None Social & Family History - Family History Family Medical History: No Pertinent Family History - Tobacco Use Tobacco Use Status *Q: Never Tobacco User Second Hand Smoke Exposure: No - Caffeine Use Caffeine Use: Reports: Coffee - Recreational Drug Use Recreational Drug Use: No - Living Situation & Occupation Living situation: Reports: , with Spouse, with Family (Daughter, son-in-law, grandson) 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 Denies: Pleuritic Chest Pain Cardiovascular: Reports: No Symptoms Endocrine: Reports: No Symptoms GI/Abdominal: Reports: No Symptoms Musculoskeletal: Reports: No Symptoms Neurological: Reports: No Symptoms Psychiatric: Reports: No Symptoms ED EXAM, GENERAL - Physical Exam Exam: See Below Exam Limited By: No Limitations General Appearance: Alert, No Apparent Distress Eye Exam: Bilateral Eye: Normal Inspection Ears: Normal External Exam, Normal Canal, Hearing Grossly Normal, Normal TMs Nose: Normal Inspection, Normal Mucosa, No Blood Throat/Mouth: Normal Inspection, Normal Lips, Normal Teeth, Normal Gums, Normal Oropharynx, Normal Voice, No Airway Compromise Head: Atraumatic, Normocephalic Neck: Normal Inspection, Supple, Non-Tender, Full Range of Motion Respiratory/Chest: Decreased Breath Sounds (He is not moving much air.), Wheezing (Few end expiratory wheezes noted), Prolonged Expiration Extremities: Normal Inspection, Normal Range of Motion Neurological: Alert, Oriented, Normal Cognition Course - Vital Signs Last Recorded V/S: Last Vital Signs Temp 36.2 C 08/20/20 10:31 Pulse 72 08/20/20 10:31 Resp 20 08/20/20 10:31 BP 140/88 08/20/20 10:31 Pulse Ox 99 08/20/20 11:37 - Orders/Labs/Meds Orders: Active Orders 24 hr Category Date Time Status RT Aerosol Therapy [RC] ASDIRECTED Care 08/20/20 11:26 Active Chest 1V Frontal [CR] Stat Exams 08/20/20 11:25 Taken Meds: Medications Discontinued Medications Generic Name Dose Route Start Last Admin Trade Name Freq PRN Reason Stop Dose Admin Albuterol/Ipratropium 3 ml 08/20/20 11:25 08/20/20 11:36 Albuterol/Ipratropium 3.0-0.5 Mg/3 Ml Neb Soln NEB 08/20/20 11:26 3 ml ONETIME ONE Administration Prednisone 80 mg 08/20/20 11:25 Prednisone 20 Mg Tab PO 08/20/20 11:26 ONETIME ONE - Re-Assessments/Exams Free Text/Narrative Re-Assessment/Exam: 08/20/20 12:36 Looking for the cause of this dyspnea or what could be causing a reactive airway disease like scenario reviewed his chart his proBNP was normal in March. Chest x-ray today shows cardiomegaly this was noted prior this does not appear worse. No evidence of pulmonary edema or congestion. The patient feels much better after the nebulizer. We will have him increase his albuterol to 2 puffs every 4 hours while awake he will be started on a prednisone taper. And he needs to follow-up in the clinic on Friday. Departure - Departure Time of Disposition: 12:37 Disposition: Home, Self-Care 01 Clinical Impression: Reactive airway disease - Discharge Information Referrals: Polina Franz PA-C [Primary Care Provider] - Forms: ED Department Discharge Additional Instructions: Return to the emergency room with any questions problems or worsening symptoms. Follow-up in the clinic on Friday for recheck. Is your albuterol inhaler 2 puffs every 4 hours while awake. You have been started on a prednisone taper take 3 tablets every morning for 3 days starting tomorrow morning. Then 2 tablets every morning for 3 days. Then 1 tablet every morning for 3 days. Then 1/2 tablet every morning for 4 days. Is been sent electronically to the clinic pharmacy over at the [facility] this needs to be picked up by 2:00 today. Sepsis Event Note (ED) - Evaluation Sepsis Screening Result: No Definite Risk - Focused Exam Vital Signs: Vital Signs Temp Pulse Resp BP Pulse Ox Pulse Ox 08/20/20 11:37 99 08/20/20 10:31 36.2 C 72 20 140/88 100 - My Orders Last 24 Hours: My Active Orders 08/20/20 11:25 Chest 1V Frontal [CR] Stat 08/20/20 11:26 RT Aerosol Therapy [RC] ASDIRECTED - Assessment/Plan Last 24 Hours: My Active Orders 08/20/20 11:25 Chest 1V Frontal [CR] Stat 08/20/20 11:26 RT Aerosol Therapy [RC] ASDIRECTED
[2020-08-20] MEDS ORDERED: Albuterol/Ipratropium 3.0-0.5 MG/3 ML Neb Soln NEB ONE (11:25)
[2020-08-20] MEDS ORDERED: predniSONE 20 MG Tab PO ONE (11:25)
[2020-08-20 13:07] VITALS: BP 133/77; PULSE 84
--- NOTE | 2020-08-21 08:52 | CR ---
Chest: Portable view of the chest was obtained. Comparison: Prior chest x-ray of 08/04/19. Heart size and mediastinum are normal. Lungs are clear with no acute parenchymal change. Slight scoliosis is noted within the spine. No acute osseous finding is seen. Impression: 1. Nothing acute is appreciated on portable chest x-ray. Diagnostic code #1
== END 2020-08-20 12:55 | disposition home or self-care (01) ==
LOC: JD.ED 10:24
DX: J45.909 Unspecified asthma, uncomplicated (principal); E66.9 Obesity, unspecified; Z68.42 Body mass index [BMI] 45.0-49.9, adult
CPT/HCPCS: 71045; 94640; 99285; J7512; 99283; J7620-GY

== ENCOUNTER 2021-01-13 09:28 | Emergency (ER) | payer OTHER ==
[2021-01-13 09:35] VITALS: BP 151/84; PULSE 64
[2021-01-13] MEDS ORDERED: Sodium Chloride 0.9% 10 ML Syringe FLUSH PRN (09:53)
[2021-01-13] MEDS ORDERED: methylPREDNISolone Sodium Succinate 125 MG/2 ML SDV IVPUSH ONE (09:54)
[2021-01-13] MEDS ORDERED: Albuterol/Ipratropium 3.0-0.5 MG/3 ML Neb Soln NEB ONE (09:54)
--- NOTE | 2021-01-13 11:14 | EDM.PDOC ---
ED HPI GENERAL MEDICAL PROBLEM - General Chief Complaint: Chest Pain Stated Complaint: CHEST PAIN/SOB Time Seen by Provider: 01/13/21 09:37 Source of Information: Reports: Patient History Limitations: Reports: No Limitations - History of Present Illness INITIAL COMMENTS - FREE TEXT/NARRATIVE: The patient presents with shortness of breath and some chest tightness. This started about a week ago. He has wheezing. He has no fever or chills. He does have a slight cough at times. He has no abdominal pain, nausea or vomiting. He has a history of asthma and he has been using more of his inhaler. He denies chest pain but he has some tightness. He has some edema in his legs the past few days and he has also been urinating more then normal. There is no burning with urination. Onset: Gradual Duration: Week(s): Location: Reports: Chest Quality: Reports: Other (tightness) Severity: Mild Improves with: Reports: None Worsens with: Reports: None Associated Symptoms: Reports: Chest Pain, Shortness of Breath. Denies: Cough, Fever/Chills, Headaches, Nausea/Vomiting Chest Pain Score (Numeric/FACES): 2 - Related Data Allergies Allergy/AdvReac Type Severity Reaction Status Date / Time No Known Allergies Allergy Verified 01/13/21 09:36 Home Meds: Home Meds Multivitamin [Daily Jhonatan] 1 tab PO DAILY 03/17/18 [History] Cholecalciferol (Vitamin D3) [Vitamin D] 5,000 unit PO DAILY 12/06/18 [History] Cyanocobalamin (Vitamin B12) [Vitamin B12] 500 mcg PO DAILY 12/06/18 [History] Albuterol Sulfate [Albuterol Sulfate Hfa] 18 gm IH Q3H PRN #1 hfa.aer.ad 04/17/20 [Rx] Fluticasone Propionate [Flovent] 1 puff INH BID 08/20/20 [History] predniSONE [Prednisone] 40 mg PO DAILY #10 tablet 01/13/21 [Rx] Past Medical History HEENT History: Reports: Allergic Rhinitis, Impaired Vision, Other (See Below) Cardiovascular History: Reports: High Cholesterol Respiratory History: Reports: Asthma, Sleep Apnea Other Respiratory History: seasonal allergies, wears C-PAP. Gastrointestinal History: Reports: PUD Other Gastrointestinal History: gastric ulcer-1996 Genitourinary History: Reports: BPH, Prostate Disorder Other Genitourinary History: vasectomy Musculoskeletal History: Reports: None Neurological History: Reports: Vertigo Psychiatric History: Reports: None Endocrine/Metabolic History: Reports: Obesity/BMI 30+ Other Endocrine/Metabolic History: metabolic X syndrome Hematologic History: Reports: None Immunologic History: Reports: None Oncologic (Cancer) History: Reports: None Dermatologic History: Reports: None - Infectious Disease History Infectious Disease History: Reports: Chicken Pox - Past Surgical History Head Surgeries/Procedures: Reports: None HEENT Surgical History: Reports: Oral Surgery, Tonsillectomy Cardiovascular Surgical History: Reports: None Respiratory Surgical History: Reports: None GI Surgical History: Reports: EGD Male Surgical History: Reports: Vasectomy Endocrine Surgical History: Reports: None Neurological Surgical History: Reports: None Musculoskeletal Surgical History: Reports: None Oncologic Surgical History: Reports: None Dermatological Surgical History: Reports: None Social & Family History - Family History Family Medical History: No Pertinent Family History - Tobacco Use Tobacco Use Status *Q: Never Tobacco User Second Hand Smoke Exposure: No - Caffeine Use Caffeine Use: Reports: Coffee, Energy Drinks, Soda - Recreational Drug Use Recreational Drug Use: No - Living Situation & Occupation Living situation: Reports: , with Spouse, with Family (Daughter, son-in-law, grandson) 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) ED ROS GENERAL - Review of Systems Review Of Systems: See Below Constitutional: Reports: No Symptoms HEENT: Reports: No Symptoms Respiratory: Reports: Shortness of Breath, Wheezing Cardiovascular: Reports: No Symptoms Endocrine: Reports: No Symptoms GI/Abdominal: Reports: No Symptoms : Reports: No Symptoms ED EXAM, GENERAL - Physical Exam Exam: See Below Exam Limited By: No Limitations General Appearance: Alert, No Apparent Distress Ears: Normal External Exam Nose: Normal Inspection Head: Atraumatic, Normocephalic Neck: Normal Inspection Respiratory/Chest: No Respiratory Distress, Decreased Breath Sounds, Wheezing Cardiovascular: Regular Rate, Rhythm, No Murmur, Other (Mild edema to both legs) #1 Interpretation EKG Date: 01/13/21 Time: 09:32 Rhythm: Other (sinus bradycardia) Rate (Beats/Min): 58 [place]: Normal P-Wave: Present QRS: Normal ST-T: Normal QT: Normal Course - Vital Signs Last Recorded V/S: Last Vital Signs Temp 97.0 F 01/13/21 09:35 Pulse 64 01/13/21 09:35 Resp 20 01/13/21 09:35 BP 151/84 H 01/13/21 09:35 Pulse Ox 98 01/13/21 09:54 - Orders/Labs/Meds Orders: Active Orders 24 hr Category Date Time Status Cardiac Monitoring [RC] . DIRECTED Care 01/13/21 09:53 Active Peripheral IV Care [RC] . DIRECTED Care 01/13/21 09:54 Active RT Aerosol Therapy [RC] ASDIRECTED Care 01/13/21 09:54 Active Chest 2V [CR] Stat Exams 01/13/21 09:54 Taken Sodium Chloride 0.9% [Saline Flush] Med 01/13/21 09:53 Active 10 ml FLUSH ASDIRECTED PRN Peripheral IV Insertion Adult [OM.PC] Stat Oth 01/13/21 09:53 Ordered Medication Orders Sodium Chloride (Sodium Chloride 0.9% 10 Ml Syringe) 10 ml FLUSH ASDIRECTED PRN PRN Reason: Keep Vein Open Last Admin: 01/13/21 10:26 Dose: 10 ml Documented by: OVIDIO Labs: Laboratory Tests 01/13/21 01/13/21 01/13/21 Range/Units 09:50 09:50 09:50 WBC 5.03 (4.23-9.07) K/mm3 RBC 5.02 (4.63-6.08) M/mm3 Hgb 15.0 (13.7-17.5) gm/dl Hct 45.8 (40.1-51.0) % MCV 91.2 (79.0-92.2) fl MCH 29.9 (25.7-32.2) pg MCHC 32.8 (32.2-35.5) g/dl RDW Std Deviation 43.9 (35.1-43.9) fL Plt Count 207 (163-337) K/mm3 MPV 9.6 (9.4-12.3) fl Neut % (Auto) 56.4 (34.0-67.9) % Lymph % (Auto) 24.3 (21.8-53.1) % [place] % (Auto) 11.3 (5.3-12.2) % Eos % (Auto) 7.2 H (0.8-7.0) Baso % (Auto) 0.8 (0.1-1.2) % Neut # (Auto) 2.84 (1.78-5.38) K/mm3 Lymph # (Auto) 1.22 L (1.32-3.57) K/mm3 [place] # (Auto) 0.57 (0.30-0.82) K/mm3 Eos # (Auto) 0.36 (0.04-0.54) K/mm3 Baso # (Auto) 0.04 (0.01-0.08) K/mm3 Sodium 140 (136-145) mEq/L Potassium 4.2 (3.5-5.1) mEq/L Chloride 104 (98-107) mEq/L Carbon Dioxide 27 (21-32) mEq/L Anion Gap 13.2 (5-15) BUN 11 (7-18) mg/dL Creatinine 1.1 (0.7-1.3) mg/dL Est Cr Clr Drug Dosing 85.24 mL/min Estimated GFR (MDRD) > 60 (>60) mL/min BUN/Creatinine Ratio 10.0 L (14-18) Glucose 109 H (70-99) mg/dL Calcium 8.3 L (8.5-10.1) mg/dL Total Bilirubin 0.4 (0.2-1.0) mg/dL AST 22 (15-37) U/L ALT 48 (16-63) U/L Alkaline Phosphatase 72 (46-116) U/L Troponin I < 0.017 (0.00-0.056) ng/mL NT-Pro-B Natriuret Pep 24 (0-125) pg/mL Total Protein 7.5 (6.4-8.2) g/dl Albumin 3.8 (3.4-5.0) g/dl Globulin 3.7 gm/dL Albumin/Globulin Ratio 1.0 (1-2) Urine Color (Yellow) Urine Appearance (Clear) Urine pH (5.0-8.0) Ur Specific [place] (1.005-1.030) Urine Protein (Negative) Urine Glucose (UA) (Negative) Urine Ketones (Negative) Urine Occult Blood (Negative) Urine Nitrite (Negative) Urine Bilirubin (Negative) Urine Urobilinogen (0.2-1.0) Ur Leukocyte Esterase (Negative) 08/28/21 Range/Units 10:30 WBC (4.23-9.07) K/mm3 RBC (4.63-6.08) M/mm3 Hgb (13.7-17.5) gm/dl Hct (40.1-51.0) % MCV (79.0-92.2) fl MCH (25.7-32.2) pg MCHC (32.2-35.5) g/dl RDW Std Deviation (35.1-43.9) fL Plt Count (163-337) K/mm3 MPV (9.4-12.3) fl Neut % (Auto) (34.0-67.9) % Lymph % (Auto) (21.8-53.1) % [place] % (Auto) (5.3-12.2) % Eos % (Auto) (0.8-7.0) Baso % (Auto) (0.1-1.2) % Neut # (Auto) (1.78-5.38) K/mm3 Lymph # (Auto) (1.32-3.57) K/mm3 [place] # (Auto) (0.30-0.82) K/mm3 Eos # (Auto) (0.04-0.54) K/mm3 Baso # (Auto) (0.01-0.08) K/mm3 Sodium (136-145) mEq/L Potassium (3.5-5.1) mEq/L Chloride (98-107) mEq/L Carbon Dioxide (21-32) mEq/L Anion Gap (5-15) BUN (7-18) mg/dL Creatinine (0.7-1.3) mg/dL Est Cr Clr Drug Dosing mL/min Estimated GFR (MDRD) (>60) mL/min BUN/Creatinine Ratio (14-18) Glucose (70-99) mg/dL Calcium (8.5-10.1) mg/dL Total Bilirubin (0.2-1.0) mg/dL AST (15-37) U/L ALT (16-63) U/L Alkaline Phosphatase (46-116) U/L Troponin I (0.00-0.056) ng/mL NT-Pro-B Natriuret Pep (0-125) pg/mL Total Protein (6.4-8.2) g/dl Albumin (3.4-5.0) g/dl Globulin gm/dL Albumin/Globulin Ratio (1-2) Urine Color Light yellow (Yellow) Urine Appearance Clear (Clear) Urine pH 7.5 (5.0-8.0) Ur Specific [place] 1.015 (1.005-1.030) Urine Protein Negative (Negative) Urine Glucose (UA) Negative (Negative) Urine Ketones Negative (Negative) Urine Occult Blood Negative (Negative) Urine Nitrite Negative (Negative) Urine Bilirubin Negative (Negative) Urine Urobilinogen 0.2 (0.2-1.0) Ur Leukocyte Esterase Negative (Negative) Meds: Medications Generic Name Dose Route Start Last Admin Trade Name Freq PRN Reason Stop Dose Admin Sodium Chloride 10 ml 01/13/21 09:53 01/13/21 10:26 Sodium Chloride 0.9% 10 Ml Syringe FLUSH 10 ml ASDIRECTED PRN Administration Keep Vein Open Discontinued Medications Generic Name Dose Route Start Last Admin Trade Name Freq PRN Reason Stop Dose Admin Albuterol/Ipratropium 3 ml 01/13/21 09:54 01/13/21 10:15 Albuterol/Ipratropium 3.0-0.5 Mg/3 Ml Neb Soln NEB 01/13/21 09:55 3 ml ONETIME ONE Administration Methylprednisolone Sodium Succinate 125 mg 01/13/21 09:54 01/13/21 10:25 Methylprednisolone Sodium Succinate 125 Mg/2 Ml Sdv IVPUSH 01/13/21 09:55 125 mg ONETIME ONE Administration - Re-Assessments/Exams Free Text/Narrative Re-Assessment/Exam: 01/13/21 11:18 I ordered an IV saline lock, duoneb, solu-medrol 125mg IV, labs, CXR and EKG. His EKG shows a NSR with no acute changes. His CXR shows no infiltrates. His CBC and CMP look good. His troponin is negative. His UA shows no UTI. I feel this is an asthma exacerbation. I will get him on some prednisone and continue his inhaler. Departure - Departure Time of Disposition: 11:25 Disposition: Home, Self-Care 01 Condition: Good Clinical Impression: Asthma exacerbation Qualifiers: Asthma severity: mild Asthma persistence: unspecified Qualified Code(s): J45.901 - Unspecified asthma with (acute) exacerbation Prescriptions: predniSONE [Prednisone] 40 mg PO DAILY #10 tablet Referrals: Polina Franz PA-C [Primary Care Provider] - 1 Week Forms: ED Department Discharge Additional Instructions: Take your prednisone daily for 5 days. Use your inhaler 2 puffs every 6 hours as needed for shortness of breath. Follow up with Polina Franz within a week. Please return if you are worse. Sepsis Event Note (ED) - Focused Exam Vital Signs: Vital Signs Temp Pulse Resp BP Pulse Ox Pulse Ox 01/13/21 09:54 98 01/13/21 09:35 97.0 F 64 20 151/84 H 97 - My Orders Last 24 Hours: My Active Orders 01/13/21 09:53 Cardiac Monitoring [RC] . DIRECTED Sodium Chloride 0.9% [Saline Flush] 10 ml FLUSH ASDIRECTED PRN Peripheral IV Insertion Adult [OM.PC] Stat 01/13/21 09:54 Peripheral IV Care [RC] . DIRECTED RT Aerosol Therapy [RC] ASDIRECTED Chest 2V [CR] Stat - Assessment/Plan Last 24 Hours: My Active Orders 01/13/21 09:53 Cardiac Monitoring [RC] . DIRECTED Sodium Chloride 0.9% [Saline Flush] 10 ml FLUSH ASDIRECTED PRN Peripheral IV Insertion Adult [OM.PC] Stat 01/13/21 09:54 Peripheral IV Care [RC] . DIRECTED RT Aerosol Therapy [RC] ASDIRECTED Chest 2V [CR] Stat
--- NOTE | 2021-01-14 09:22 | CR ---
Chest: 2 views of the chest were obtained. Comparison: Prior chest x-ray of 08/20/20. Heart size is normal. Slight tortuosity of the thoracic aorta is seen. Lungs are clear with no acute parenchymal change. Slight scoliosis is noted within the spine with mild scattered degenerative change. Impression: 1. Incidental findings. 2. Nothing acute is appreciated on 2 view chest x-ray. Diagnostic code #2
== END 2021-01-13 12:00 | disposition home or self-care (01) ==
LOC: JD.ED 09:28
DX: J45.901 Unspecified asthma with (acute) exacerbation (principal); R00.1 Bradycardia, unspecified; E66.9 Obesity, unspecified; Z68.41 Body mass index [BMI] 40.0-44.9, adult; Z79.899 Other long term (current) drug therapy
CPT/HCPCS: 36415; 71046; 80053; 81003; 83880; 84484; 85025; 93005; 94640; 96374; 99285; J2930; 93010; 99283; J7620-GY

== ENCOUNTER 2021-01-29 08:50 | Emergency (ER) | payer OTHER ==
[2021-01-29 09:38] VITALS: BP 134/88; PULSE 65
[2021-01-29] MEDS ORDERED: Albuterol 0.083% 2.5 MG/3 ML Neb Soln NEB ONE (09:49)
--- NOTE | 2021-01-29 10:11 | EDM.PDOC ---
ED HPI GENERAL MEDICAL PROBLEM - General Chief Complaint: Respiratory Problem Stated Complaint: SOB X 1 YR Time Seen by Provider: 01/29/21 09:27 Source of Information: Reports: Patient History Limitations: Reports: No Limitations - History of Present Illness INITIAL COMMENTS - FREE TEXT/NARRATIVE: 55-year-old male presents the emergency department today with complaints of increasing shortness of breath, chest tightness and wheezing. Patient states that this has been going on intermittently for the past year. He states he had pulmonary function studies last spring however none of his medications were changed at that time. He currently has an albuterol inhaler and states that last night he used it 3 times in 15 minute span before he got relief of his shortness of breath and wheezing. Patient was recently seen in this emergency department on 01/13/2021 for similar symptoms. He was diagnosed at that time with an asthma exacerbation and sent home on tapering dose of prednisone. He states he did get some relief for a few days however he feels his symptoms are again worsening. He denies any recent fever, chills, nausea, vomiting or diarrhea. He denies any urinary symptoms. He does admit to an occasional dry cough associated with the shortness of breath and wheezing. He does have a primary care provider however he attempted to schedule appointment and was told she is unavailable. Denies any history of smoking. Chest Pain Score (Numeric/FACES): 6 - Related Data Allergies Allergy/AdvReac Type Severity Reaction Status Date / Time No Known Allergies Allergy Verified 01/29/21 09:38 Home Meds: Home Meds Multivitamin [Daily Jhonatan] 1 tab PO DAILY 03/17/18 [History] Cholecalciferol (Vitamin D3) [Vitamin D] 5,000 unit PO DAILY 12/06/18 [History] Cyanocobalamin (Vitamin B12) [Vitamin B12] 500 mcg PO DAILY 12/06/18 [History] Albuterol Sulfate [Albuterol Sulfate Hfa] 18 gm IH Q3H PRN #1 hfa.aer.ad 04/17/20 [Rx] Fluticasone Propionate [Flovent] 1 puff INH BID 08/20/20 [History] predniSONE [Prednisone] 40 mg PO DAILY #10 tablet 01/13/21 [Rx] Albuterol [Proventil Neb Soln] 2.5 mg INH Q4H PRN #30 neb 01/29/21 [Rx] predniSONE [Prednisone] 20 mg PO BID #35 tablet 01/29/21 [Rx] Past Medical History HEENT History: Reports: Allergic Rhinitis, Impaired Vision, Other (See Below) Cardiovascular History: Reports: High Cholesterol Respiratory History: Reports: Asthma, Sleep Apnea Other Respiratory History: seasonal allergies, wears C-PAP. Gastrointestinal History: Reports: PUD Other Gastrointestinal History: gastric ulcer-1996 Genitourinary History: Reports: BPH, Prostate Disorder Other Genitourinary History: vasectomy Musculoskeletal History: Reports: None Neurological History: Reports: Vertigo Psychiatric History: Reports: None Endocrine/Metabolic History: Reports: Obesity/BMI 30+ Other Endocrine/Metabolic History: metabolic X syndrome Hematologic History: Reports: None Immunologic History: Reports: None Oncologic (Cancer) History: Reports: None Dermatologic History: Reports: None - Infectious Disease History Infectious Disease History: Reports: Chicken Pox - Past Surgical History Head Surgeries/Procedures: Reports: None HEENT Surgical History: Reports: Oral Surgery, Tonsillectomy Cardiovascular Surgical History: Reports: None Respiratory Surgical History: Reports: None GI Surgical History: Reports: EGD Male Surgical History: Reports: Vasectomy Endocrine Surgical History: Reports: None Neurological Surgical History: Reports: None Musculoskeletal Surgical History: Reports: None Oncologic Surgical History: Reports: None Dermatological Surgical History: Reports: None Social & Family History - Family History Family Medical History: No Pertinent Family History - Tobacco Use Tobacco Use Status *Q: Never Tobacco User - Caffeine Use Caffeine Use: Reports: Coffee, Energy Drinks, Soda - Living Situation & Occupation Living situation: Reports: , with Spouse, with Family (Daughter, son-in-law, grandson) 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 ED EXAM, GENERAL - Physical Exam Exam: See Below Exam Limited By: No Limitations General Appearance: Alert, WD/WN, No Apparent Distress Ears: Normal External Exam, Hearing Grossly Normal Nose: Normal Inspection Throat/Mouth: Normal Inspection, Normal Lips, Normal Voice, No Airway Compromise Head: Atraumatic, Normocephalic Neck: Normal Inspection, Supple Respiratory/Chest: No Respiratory Distress, Normal Breath Sounds, No Accessory Muscle Use, Chest Non-Tender, Wheezing (Expiratory wheezes noted to all lobes posteriorly). No: Lungs Clear Cardiovascular: Normal Peripheral Pulses, Regular Rate, Rhythm, No Edema, No Murmur Peripheral Pulses: 2+: Radial (L), Radial (R) GI/Abdominal: Normal Bowel Sounds, Soft, Non-Tender, No Distention (Male) Exam: Deferred Rectal (Males) Exam: Deferred Back Exam: Normal Inspection Extremities: Normal Inspection Neurological: Alert, Oriented, Normal Cognition Psychiatric: Normal Affect, Normal Mood Skin Exam: Warm, Dry, Intact, Normal Color, No Rash Lymphatic: No Adenopathy #1 Interpretation EKG Date: 01/29/21 Time: 10:16 Rhythm: NSR Rate (Beats/Min): 62 Paradox: Normal P-Wave: Present QRS: Normal ST-T: Normal QT: Normal EKG Interpretation Comments: Per Dr. Wagner interpretation: Sinus rhythm at 65 bpm; RSR primeV1 and [id number] right bundle branch block; LAD (-27 degrees); poor R wave progression; T wave flattening 1 and aVL Course - Vital Signs Text/Narrative:: As stated above, patient presents with increasing shortness of breath, chest pressure and wheezing. He did attempt to use his albuterol inhaler last evening. He did take 3 doses 15 minutes apart before getting relief of shortness of breath and wheezing. The patient also takes a Flovent inhaler twice daily and states he has been taking that as prescribed. Upon exam, the patient is hemodynamically stable with O2 saturations at 100%. He is not t achypneic or tachycardic. He does have expiratory wheezes noted to all rdz posteriorly upon auscultation. I have ordered a chest x-ray as well as labs to include a CBC, CMP, magnesium level, troponin and proBNP. We will also order an albuterol nebulizer. Last Recorded V/S: Last Vital Signs Temp 97.8 F 01/29/21 09:33 Pulse 65 01/29/21 09:33 Resp 20 01/29/21 09:33 BP 134/88 01/29/21 09:33 Pulse Ox 96 01/29/21 09:50 - Orders/Labs/Meds Orders: Active Orders 24 hr Category Date Time Status RT Aerosol Therapy [RC] ASDIRECTED Care 01/29/21 09:50 Active Labs: Laboratory Tests 01/29/21 01/29/21 01/29/21 Range/Units 10:10 10:10 10:10 WBC 4.71 (4.23-9.07) K/mm3 RBC 4.70 (4.63-6.08) M/mm3 Hgb 14.0 (13.7-17.5) gm/dl Hct 42.8 (40.1-51.0) % MCV 91.1 (79.0-92.2) fl MCH 29.8 (25.7-32.2) pg MCHC 32.7 (32.2-35.5) g/dl RDW Std Deviation 43.0 (35.1-43.9) fL Plt Count 184 (163-337) K/mm3 MPV 9.6 (9.4-12.3) fl Neut % (Auto) 61.2 (34.0-67.9) % Lymph % (Auto) 20.2 L (21.8-53.1) % Bath % (Auto) 10.4 (5.3-12.2) % Eos % (Auto) 7.4 H (0.8-7.0) Baso % (Auto) 0.6 (0.1-1.2) % Neut # (Auto) 2.88 (1.78-5.38) K/mm3 Lymph # (Auto) 0.95 L (1.32-3.57) K/mm3 Bath # (Auto) 0.49 (0.30-0.82) K/mm3 Eos # (Auto) 0.35 (0.04-0.54) K/mm3 Baso # (Auto) 0.03 (0.01-0.08) K/mm3 D-Dimer, Quantitative 0.42 (0.19-0.50) mg/L Sodium 140 (136-145) mEq/L Potassium 4.1 (3.5-5.1) mEq/L Chloride 105 (98-107) mEq/L Carbon Dioxide 25 (21-32) mEq/L Anion Gap 14.1 (5-15) BUN 14 (7-18) mg/dL Creatinine 1.0 (0.7-1.3) mg/dL Est Cr Clr Drug Dosing 93.77 mL/min Estimated GFR (MDRD) > 60 (>60) mL/min BUN/Creatinine Ratio 14.0 (14-18) Glucose 126 H (70-99) mg/dL Calcium 8.6 (8.5-10.1) mg/dL Magnesium 1.9 (1.8-2.4) mg/dL Total Bilirubin 0.4 (0.2-1.0) mg/dL AST 18 (15-37) U/L ALT 36 (16-63) U/L Alkaline Phosphatase 63 (46-116) U/L Troponin I < 0.017 (0.00-0.056) ng/mL NT-Pro-B Natriuret Pep (0-125) pg/mL Total Protein 7.0 (6.4-8.2) g/dl Albumin 3.4 (3.4-5.0) g/dl Globulin 3.6 gm/dL Albumin/Globulin Ratio 0.9 L (1-2) 01/29/21 Range/Units 10:10 WBC (4.23-9.07) K/mm3 RBC (4.63-6.08) M/mm3 Hgb (13.7-17.5) gm/dl Hct (40.1-51.0) % MCV (79.0-92.2) fl MCH (25.7-32.2) pg MCHC (32.2-35.5) g/dl RDW Std Deviation (35.1-43.9) fL Plt Count (163-337) K/mm3 MPV (9.4-12.3) fl Neut % (Auto) (34.0-67.9) % Lymph % (Auto) (21.8-53.1) % Bath % (Auto) (5.3-12.2) % Eos % (Auto) (0.8-7.0) Baso % (Auto) (0.1-1.2) % Neut # (Auto) (1.78-5.38) K/mm3 Lymph # (Auto) (1.32-3.57) K/mm3 Bath # (Auto) (0.30-0.82) K/mm3 Eos # (Auto) (0.04-0.54) K/mm3 Baso # (Auto) (0.01-0.08) K/mm3 D-Dimer, Quantitative (0.19-0.50) mg/L Sodium (136-145) mEq/L Potassium (3.5-5.1) mEq/L Chloride (98-107) mEq/L Carbon Dioxide (21-32) mEq/L Anion Gap (5-15) BUN (7-18) mg/dL Creatinine (0.7-1.3) mg/dL Est Cr Clr Drug Dosing mL/min Estimated GFR (MDRD) (>60) mL/min BUN/Creatinine Ratio (14-18) Glucose (70-99) mg/dL Calcium (8.5-10.1) mg/dL Magnesium (1.8-2.4) mg/dL Total Bilirubin (0.2-1.0) mg/dL AST (15-37) U/L ALT (16-63) U/L Alkaline Phosphatase (46-116) U/L Troponin I (0.00-0.056) ng/mL NT-Pro-B Natriuret Pep 56 (0-125) pg/mL Total Protein (6.4-8.2) g/dl Albumin (3.4-5.0) g/dl Globulin gm/dL Albumin/Globulin Ratio (1-2) Meds: Medications Discontinued Medications Generic Name Dose Route Start Last Admin Trade Name Freq PRN Reason Stop Dose Admin Albuterol 2.5 mg 01/29/21 09:49 01/29/21 10:14 Albuterol 0.083% 2.5 Mg/3 Ml Neb Soln NEB 01/29/21 09:50 2.5 mg ONETIME ONE Administration - Re-Assessments/Exams Free Text/Narrative Re-Assessment/Exam: 01/29/21 10:24 Radiologist impression portable view of the chest: 1. Nothing acute is seen on portable chest x-ray. 01/29/21 11:16 Hematology reveals a WBC of 4.71, hemoglobin 14.0, hematocrit 42.8, platelet count 184, D-dimer 0.42 Chemistry reveals a sodium 140, potassium 4.1, anion gap 14.1, BUN 14, creatinine 1.0, glucose 126, magnesium 1.9, troponin less than 0.017, proBNP 56 Discussed the case with Dr. Wagner and he recommends that the patient be placed on a longer tapering dose of prednisone and then to follow up with his primary care provider. I have also given him his prescription for nebulizer machine and supplies. I will send a prescription for albuterol nebs to his pharmacy. Departure - Departure Time of Disposition: 11:26 Disposition: Home, Self-Care 01 Condition: Good Clinical Impression: Asthma exacerbation, mild - Discharge Information Prescriptions: predniSONE [Prednisone] 20 mg PO BID #35 tablet Albuterol [Proventil Neb Soln] 2.5 mg INH Q4H PRN #30 neb PRN Reason: Shortness Of Breath Referrals: Polina Franz PA-C [Primary Care Provider] - Forms: ED Department Discharge Additional Instructions: You were seen in the emergency department today with complaints of increased shortness of breath, wheezing and chest tightness. Chest x-ray and lab studies were completed and they were all unremarkable. While you are in the emergency department you were given an albuterol nebulizer treatment and this did seem to help somewhat. There is significant less wheezing noted. As discussed he will be started on prednisone 20 mg twice daily for 10 days then 20 mg daily for 10 days then 20 mg every other day for 10 days. You were also given a prescription for a nebulizer machine. You may use your nebulizer every 4 hours as needed for shortness of breath and wheezing. This likely will work better than your albuterol inhaler. You will need to car pick up driver your nebulizer machine at [facility] in [place]. You will need to follow-up with your primary care provider in about 10 days time. Should your condition worsen or change, do not hesitate returning to the emergency department. Sepsis Event Note (ED) - Evaluation Sepsis Screening Result: No Definite Risk - Focused Exam Vital Signs: Vital Signs Temp Pulse Resp BP Pulse Ox Pulse Ox 01/29/21 09:50 96 01/29/21 09:33 97.8 F 65 20 134/88 100 - My Orders Last 24 Hours: My Active Orders 01/29/21 09:50 RT Aerosol Therapy [RC] ASDIRECTED - Assessment/Plan Last 24 Hours: My Active Orders 01/29/21 09:50 RT Aerosol Therapy [RC] ASDIRECTED
--- NOTE | 2021-01-29 10:19 | CR ---
Chest: Portable view of the chest was obtained. Comparison: Prior chest x-ray of 01/13/21. Heart size and mediastinum are within normal limits for portable technique. Lungs are clear with no acute parenchymal change. Bony structures shows nothing acute. Impression: 1. Nothing acute is seen on portable chest x-ray. Diagnostic code #1
== END 2021-01-29 12:40 | disposition home or self-care (01) ==
LOC: JD.ED 08:50
DX: J45.20 Mild intermittent asthma, uncomplicated (principal); E66.9 Obesity, unspecified; Z68.41 Body mass index [BMI] 40.0-44.9, adult; Z79.899 Other long term (current) drug therapy
CPT/HCPCS: 36415; 71045; 71045-26; 80053; 83735; 83880; 84484; 85025; 85379; 93005; 93010; 94640; 99284; 99285-25

== ENCOUNTER 2021-02-19 19:31 | Emergency (ER) | payer OTHER ==
--- NOTE | 2021-02-19 22:01 | EDM.PDOC ---
ED HPI GENERAL MEDICAL PROBLEM - General Chief Complaint: Respiratory Problem Stated Complaint: SOB Time Seen by Provider: 02/19/21 21:38 Source of Information: Reports: Patient, Family () History Limitations: Reports: No Limitations - History of Present Illness INITIAL COMMENTS - FREE TEXT/NARRATIVE: Mr. Michael is a very pleasant 55-year-old gentleman who now presents to the ED stating that he has been experiencing dyspnea on exertion for more than 1 year, but that it has been worse over the past few days. He states that he has had a cough productive of whitish sputum, but that he has not been wheezing. He states that he saw a Rigging Worker and underwent PFTs, which were unremarkable - he does not have either asthma or COPD. He was seen in this ED on 01/29/2021, d iagnosed with bronchitis, and prescribed 35 tablets of prednisone, along with an albuterol neb and MDI. He states that these have not helped. He reports that he developed some urinary frequency and mid back pain today. Here in the ED tonight, the patient's initial BP is found to be mildly elevated at 149/81, otherwise, he is hemodynamically stable, afebrile, saturating 99% on room air. He appears to be relatively comfortable, in no acute distress. The patient denies having a recent fever, chills, sore throat, ear pain, nasal or sinus congestion, chest pain, palpitations, nausea, vomiting, constipation, diarrhea, abdominal pain, urinary symptoms, recent weight gain or weight loss, recent bloody bowel movements or black bowel movements, recent joint aches, headaches, or rashes. The patient's PCP is LI Alexander. He does not recall the name of his Rigging Worker. He has not received a COVID vaccination. Upper Back Pain Score (Numeric/FACES): 5 - Related Data Allergies Allergy/AdvReac Type Severity Reaction Status Date / Time No Known Allergies Allergy Verified 01/29/21 09:38 Home Meds: Home Meds Multivitamin [Daily Jhonatan] 1 tab PO DAILY 03/17/18 [History] Cholecalciferol (Vitamin D3) [Vitamin D] 5,000 unit PO DAILY 12/06/18 [History] Cyanocobalamin (Vitamin B12) [Vitamin B12] 500 mcg PO DAILY 12/06/18 [History] Albuterol Sulfate [Albuterol Sulfate Hfa] 18 gm IH Q3H PRN #1 [id number] 04/17/20 [Rx] Fluticasone Propionate [Flovent] 1 puff INH BID 08/20/20 [History] predniSONE [Prednisone] 40 mg PO DAILY #10 tablet 01/13/21 [Rx] Albuterol [Proventil Neb Soln] 2.5 mg INH Q4H PRN #30 neb 01/29/21 [Rx] predniSONE [Prednisone] 20 mg PO BID #35 tablet 01/29/21 [Rx] Past Medical History HEENT History: Reports: Allergic Rhinitis, Impaired Vision Cardiovascular History: Reports: High Cholesterol (untreated) Respiratory History: Reports: Sleep Apnea (nightly CPAP 8) Gastrointestinal History: Reports: PUD (gastric ulcer 1996) Genitourinary History: Reports: BPH Endocrine/Metabolic History: Reports: Obesity/BMI 30+ - Infectious Disease History Infectious Disease History: Reports: Chicken Pox - Past Surgical History HEENT Surgical History: Reports: Oral Surgery (dental extractions), Tonsillectomy GI Surgical History: Reports: Colonoscopy (x 1), EGD (x 2) Male Surgical History: Reports: Vasectomy Social & Family History - Tobacco Use Tobacco Use Status *Q: Never Tobacco User - Caffeine Use Caffeine Use: Reports: Coffee, Energy Drinks, Soda - Alcohol Use Alcohol Use History: Yes Alcohol Use Frequency: Socially - Recreational Drug Use Recreational Drug Use: No - Living Situation & Occupation Living situation: Reports: , with Spouse 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 ED EXAM, GENERAL - Physical Exam Exam: See Below Exam Limited By: No Limitations General Appearance: Alert, WD/WN, No Apparent Distress Eye Exam: Bilateral Eye: EOMI, Normal Inspection Ears: Normal External Exam, Hearing Grossly Normal Nose: Normal Inspection Throat/Mouth: Normal Inspection, Normal Lips, Normal Voice, No Airway Compromise Head: Atraumatic, Normocephalic Neck: Normal Inspection, Full Range of Motion Respiratory/Chest: No Respiratory Distress, Lungs Clear, Normal Breath Sounds, No Accessory Muscle Use, Other (Deep breaths induced a cough with some end expiratory wheezing, otherwise, when not coughing, his lungs were entirely CTAB). No: Decreased Breath Sounds, Crackles, Rhonchi, Stridor, Prolonged Expiration Cardiovascular: Normal Peripheral Pulses, Regular Rate, Rhythm, No Gallop, No JVD, No Murmur, No Rub Peripheral Pulses: 3+: Radial (L), Radial (R) GI/Abdominal: Normal Bowel Sounds, Soft, Non-Tender, No Organomegaly, No Distention, No Abnormal Bruit, No Mass Back Exam: Normal Inspection, Full Range of Motion, NT Extremities: Normal Inspection, Normal Range of Motion, No Pedal Edema, Normal Capillary Refill, Other (1-2+ pretibial edema bilaterally) Neurological: Alert, Oriented, Normal Cognition, No Motor/Sensory Deficits Psychiatric: Normal Affect Skin Exam: Warm, Dry, Intact, Normal Color, No Rash Course - Vital Signs Last Recorded V/S: Last Vital Signs Temp 36.9 C 02/19/21 20:55 Pulse 74 02/20/21 02:45 Resp 97 H 02/20/21 01:30 BP 130/77 02/20/21 02:45 Pulse Ox 96 02/20/21 02:45 - Orders/Labs/Meds Labs: Laboratory Tests 02/19/21 02/19/21 02/19/21 Range/Units 21:15 22:02 22:37 WBC 4.52 (4.23-9.07) K/mm3 RBC 4.48 L (4.63-6.08) M/mm3 Hgb 13.5 L (13.7-17.5) gm/dl Hct 41.8 (40.1-51.0) % MCV 93.3 H (79.0-92.2) fl MCH 30.1 (25.7-32.2) pg MCHC 32.3 (32.2-35.5) g/dl RDW Std Deviation 44.4 H (35.1-43.9) fL Plt Count 165 (163-337) K/mm3 MPV 9.5 (9.4-12.3) fl Neutrophils % (Manual) 72 H (40-60) % Band Neutrophils % 0 (0-10) % Lymphocytes % (Manual) 25 (20-40) % Atypical Lymphs % 0 % Monocytes % (Manual) 3 (2-10) % Eosinophils % (Manual) 0 L (0.8-7.0) % Basophils % (Manual) 0 L (0.2-1.2) Platelet Estimate Adequate RBC Morph Comment Normal APTT (21.7-31.4) SECONDS D-Dimer, Quantitative (0.19-0.50) mg/L Sodium (136-145) mEq/L Potassium (3.5-5.1) mEq/L Chloride (98-107) mEq/L Carbon Dioxide (21-32) mEq/L Anion Gap (5-15) BUN (7-18) mg/dL Creatinine (0.7-1.3) mg/dL Est Cr Clr Drug Dosing mL/min Estimated GFR (MDRD) (>60) mL/min BUN/Creatinine Ratio (14-18) Glucose (70-99) mg/dL Calcium (8.5-10.1) mg/dL Total Bilirubin (0.2-1.0) mg/dL AST (15-37) U/L ALT (16-63) U/L Alkaline Phosphatase (46-116) U/L Troponin I (0.00-0.056) ng/mL NT-Pro-B Natriuret Pep (0-125) pg/mL Total Protein (6.4-8.2) g/dl Albumin (3.4-5.0) g/dl Globulin gm/dL Albumin/Globulin Ratio (1-2) Urine Color Light yellow (Yellow) Urine Appearance Clear (Clear) Urine pH 6.0 (5.0-8.0) Ur Specific [place] 1.010 (1.005-1.030) Urine Protein Negative (Negative) Urine Glucose (UA) Negative (Negative) Urine Ketones Negative (Negative) Urine Occult Blood Negative (Negative) Urine Nitrite Negative (Negative) Urine Bilirubin Negative (Negative) Urine Urobilinogen 0.2 (0.2-1.0) Ur Leukocyte Esterase Negative (Negative) Urine RBC 0-5 (0-5) /hpf Urine WBC 0-5 (0-5) /hpf Ur Squamous Epith Cells 0-5 (0-5) /hpf Urine Bacteria Occasional (FEW) /hpf Urine Mucus Not seen (FEW) /hpf Influenza Type A RNA Negative (NEGATIVE) Influenza Type B RNA Negative (NEGATIVE) SARS-CoV-2 RNA (ERAN) Positive H (NEGATIVE) 02/19/21 02/19/21 02/19/21 Range/Units 22:37 22:37 22:37 WBC (4.23-9.07) K/mm3 RBC (4.63-6.08) M/mm3 Hgb (13.7-17.5) gm/dl Hct (40.1-51.0) % MCV (79.0-92.2) fl MCH (25.7-32.2) pg MCHC (32.2-35.5) g/dl RDW Std Deviation (35.1-43.9) fL Plt Count (163-337) K/mm3 MPV (9.4-12.3) fl Neutrophils % (Manual) (40-60) % Band Neutrophils % (0-10) % Lymphocytes % (Manual) (20-40) % Atypical Lymphs % % Monocytes % (Manual) (2-10) % Eosinophils % (Manual) (0.8-7.0) % Basophils % (Manual) (0.2-1.2) Platelet Estimate RBC Morph Comment APTT 28.1 (21.7-31.4) SECONDS D-Dimer, Quantitative 0.48 (0.19-0.50) mg/L Sodium 138 (136-145) mEq/L Potassium 3.8 (3.5-5.1) mEq/L Chloride 102 (98-107) mEq/L Carbon Dioxide 29 (21-32) mEq/L Anion Gap 10.8 (5-15) BUN 17 (7-18) mg/dL Creatinine 1.3 (0.7-1.3) mg/dL Est Cr Clr Drug Dosing 72.13 mL/min Estimated GFR (MDRD) 58 (>60) mL/min BUN/Creatinine Ratio 13.1 L (14-18) Glucose 90 (70-99) mg/dL Calcium 8.2 L (8.5-10.1) mg/dL Total Bilirubin 0.4 (0.2-1.0) mg/dL AST 18 (15-37) U/L ALT 39 (16-63) U/L Alkaline Phosphatase 54 (46-116) U/L Troponin I < 0.017 (0.00-0.056) ng/mL NT-Pro-B Natriuret Pep 129 H (0-125) pg/mL Total Protein 7.0 (6.4-8.2) g/dl Albumin 3.6 (3.4-5.0) g/dl Globulin 3.4 gm/dL Albumin/Globulin Ratio 1.1 (1-2) Urine Color (Yellow) Urine Appearance (Clear) Urine pH (5.0-8.0) Ur Specific [place] (1.005-1.030) Urine Protein (Negative) Urine Glucose (UA) (Negative) Urine Ketones (Negative) Urine Occult Blood (Negative) Urine Nitrite (Negative) Urine Bilirubin (Negative) Urine Urobilinogen (0.2-1.0) Ur Leukocyte Esterase (Negative) Urine RBC (0-5) /hpf Urine WBC (0-5) /hpf Ur Squamous Epith Cells (0-5) /hpf Urine Bacteria (FEW) /hpf Urine Mucus (FEW) /hpf Influenza Type A RNA (NEGATIVE) Influenza Type B RNA (NEGATIVE) SARS-CoV-2 RNA (ERAN) (NEGATIVE) Meds: Medications Discontinued Medications Generic Name Dose Route Start Last Admin Trade Name Freq PRN Reason Stop Dose Admin Diphenhydramine HCl 50 mg 02/20/21 00:45 Diphenhydramine 50 Mg/Ml Sdv IVPUSH ONETIME PRN hypersensitivity reaction Epinephrine HCl 0.3 mg 02/20/21 00:45 Epinephrine 1 Mg/Ml Sdv IM ONETIME PRN hypersensitivity reaction Famotidine 20 mg 02/20/21 00:45 Famotidine 20 Mg/2 Ml Sdv IVPUSH ONETIME PRN hypersensitivity reaction CASIRIVIMAB/IMDEVIMAB 10 ml/ 110 mls @ 220 mls/hr 02/20/21 00:45 02/20/21 01:12 Sodium Chloride IV 02/20/21 01:14 220 mls/hr ONETIME ONE Administration Methylprednisolone Sodium Succinate 125 mg 02/20/21 00:45 Methylprednisolone Sodium Succinate 125 Mg/2 Ml Sdv IVPUSH ONETIME PRN hypersensitivity reaction Sodium Chloride 30 ml 02/20/21 00:45 Sodium Chloride 0.9% 10 Ml Syringe FLUSH ASDIRECTED SYLVIA - Re-Assessments/Exams Free Text/Narrative Re-Assessment/Exam: 02/19/21 22:01 As above, the patient has been experiencing dyspnea on exertion for more than a year, not improved with prednisone and albuterol. He reports a cough occasionally productive of whitish sputum, but no wheezing or fever. On examination, deep breaths induced a cough with some end-expiratory wheezing, but when not coughing, his lungs were entirely clear to auscultation bilaterally. The etiology of chronic dyspnea includes asthma/COPD, interstitial lung disease, cardiac disease, and obesity/deconditioning. Asthma/COPD has already been ruled out. The diagnosis of interstitial lung disease is made by CT scan, although PFTs play a role, and apparently were not indicative when he previously underwent PFTs. I have ordered a work-up that includes several blood tests, a swab for the SARS-CoV-2 virus/influenza viruses, and a chest x-ray. With respect to the patient's report of urinary frequency and mid-back pain today, a urinalysis was ordered at triage. 02/19/21 23:33 Two-view chest radiograph reviewed. The cardiac silhouette is within normal limits. No pulmonary vascular congestion. No pleural effusions. No focal infiltrate. No pneumothorax. Thoracic scoliosis noted. Formal read per the Radiologist pending. 02/20/21 00:32 The patient's CBC is remarkable for a Hgb slightly depressed at 13.5, with a Hct normal at 41.8, and the remainder of his CBC being unremarkable. His CMP is unremarkable. His troponin is undetectably low. His pro-BNP is slightly elevated at 129. His D-dimer is within normal limits at 0.48. His swab for the SARS-CoV-2 virus is positive. His swab for influenza A + B viruses is negative. His urinalysis is unremarkable. 02/20/21 00:46 Test results discussed with the patient and his . While the patient has COVID-19, his more than 1 year of dyspnea on exertion cannot be blamed on COVID- 19. The only symptom that is likely due to COVID-19 is his mid-back pain that he developed yesterday. Based on the patient's BMI, he is a candidate for an infusion of the monoclonal antibody Regen-Cov. We discussed that at length, including that it is an emergency use authorization medication intended to decrease the likelihood of patients diagnosed with COVID-19 from developing severe symptoms or , and that it does not treat current symptoms. I explained that Regen-Cov is still under investigation, that it is not fully FDA approved, and that the potential benefits and risks of the medication are not fully known. The patient was notified that if he receives Regen-Cov, that it may decrease his immune response to a COVID vaccination, should he decide to get it after he recovers from his current illness. I explained that there is a possibility that he could have an allergic reaction either during or after the infusion, as well as brief pain, bleeding, bruising of the skin, soreness, swelling, and possible infection at the infusion site. Other side effects could occur. I discussed that there are other potential treatment options that are currently not FDA approved to treat COVID-19. The patient was notified that the infusion takes about half an hour, after which he would be expected to remain in the ED for another hour to observe for possible side effects. He was offered the "Patient and caregiver LOVE Regen-Cov fact sheet" to read and review. All questions were answered. The patient expressed understanding, and would like to proceed with the infusion. 02/20/21 02:36 It has been about an hour since the Regen-Cov infusion finished. No adverse reactions. I will discharge the patient home with instructions to strictly iso late for 10 days, then get retested. He may take OTC ibuprofen as needed for body aches. He should stay adequately hydrated. He should discontinue both the prednisone and the albuterol. Once he has completely recovered, he should follow-up with his PCP to arrange for an outpatient cardiac evaluation that should probably include an echocardiogram and cardiac stress test. Departure - Departure Time of Disposition: 02:37 Disposition: Home, Self-Care 01 Condition: Good Clinical Impression: COVID-19, Chronic dyspnea - Discharge Information *PRESCRIPTION DRUG MONITORING PROGRAM REVIEWED*: Not Applicable *COPY OF PRESCRIPTION DRUG MONITORING REPORT IN PATIENT ABBEY: Not Applicable Instructions: Prone Position Therapy, COVID-19 Referrals: Polina Franz PA-C [Primary Care Provider] - Forms: ED Department Discharge Additional Instructions: You were seen in the emergency room for more than 1 year of shortness of breath with exertion, worse over the past few days, and not improved with prednisone and albuterol. You had also noticed some urinary frequency and mid-back pain yesterday. Work-up in the ER included several blood tests, a swab for the SARS-CoV-2 virus, a urinalysis, and a chest x-ray. Your swab for the SARS-CoV-2 virus returned positive, meaning that you have COVID-19. The remainder of your work-up was unremarkable. You were treated with an infusion of the monoclonal antibodies Regen-Cov (Regeneron). As discussed, Regen-Cov is not intended to treat your current symptoms, rather, is intended to decrease the likelihood that you will develop serious complications or even from COVID-19. You may take [id number] ibuprofen, 3 to 4 tablets (600-800 mg) up to every 8 hours, with food, as needed for body aches. We recommend that you discontinue the prednisone and albuterol. As discussed, it is imperative that both you and your strictly isolate for 10 days. At that time, you should get retested to confirm that you are negative before breaking isolation. After you have fully recovered, we recommend that you follow-up with your PCP, LI Alexander, to arrange for an outpatient cardiac evaluation that should probably include an echocardiogram and a cardiac stress test. If any other problems, please do not hesitate to return to the ER. Sepsis Event Note (ED) - Evaluation Sepsis Screening Result: No Definite Risk - Focused Exam Vital Signs: Vital Signs Temp Pulse Resp BP Pulse Ox 02/20/21 02:45 74 130/77 96 02/20/21 02:15 72 137/72 96 02/20/21 02:00 76 129/76 94 L 02/20/21 01:45 75 145/71 H 94 L 02/20/21 01:30 76 97 H 134/87 02/19/21 20:55 36.9 C 83 20 149/81 H 99
[2021-02-19 23:40] LABS: CORONAVIRUS COVID-19 NAA POSITIVE (NEGATIVE)
[2021-02-20] MEDS ORDERED: Sodium Chloride 0.9% 10 ML Syringe FLUSH SCH (00:45)
[2021-02-20] MEDS ORDERED: methylPREDNISolone Sodium Succinate 125 MG/2 ML SDV IVPUSH PRN (00:45)
[2021-02-20] MEDS ORDERED: diphenhydrAMINE 50 MG/ML SDV IVPUSH PRN (00:45)
[2021-02-20] MEDS ORDERED: EPINEPHrine 1 MG/ML SDV IM PRN (00:45)
[2021-02-20] MEDS ORDERED: Famotidine 20 MG/2 ML SDV IVPUSH PRN (00:45)
[2021-02-20 03:13] VITALS: BP 130/77; PULSE 74
--- NOTE | 2021-02-20 06:31 | CR ---
Chest: PA and lateral views of the chest were obtained. Comparison: Prior chest x-ray of 01/29/21. Heart size and mediastinum are within normal limits. Central lung markings are slightly increased on the left side raising the possibility of bronchitis. Lungs otherwise are clear. Slight scoliosis is noted within the spine. Impression: 1. Possible mild left-sided bronchitis. Please correlate with patient's symptoms. 2. Nothing acute is otherwise seen on 2 view chest x-ray. Diagnostic code #3
== END 2021-02-20 02:59 | disposition home or self-care (01) ==
LOC: JD.ED 19:31
DX: U07.1 COVID-19 (principal); E66.9 Obesity, unspecified; Z68.42 Body mass index [BMI] 45.0-49.9, adult
CPT/HCPCS: 0240U; 36415; 71046; 80053; 81001; 83880; 84484; 85007; 85027; 85379; 85730; 99285; M0243; Q0243

== ENCOUNTER 2021-03-03 17:49 | Emergency (ER) | payer OTHER ==
[2021-03-03 18:42] VITALS: BP 164/99; PULSE 73
[2021-03-03] MEDS ORDERED: Metoclopramide 10 MG/2 ML SDV IVPUSH ONE (20:27)
[2021-03-03] MEDS ORDERED: Ketorolac 15 MG/ML SDV IVPUSH ONE (20:27)
[2021-03-03] MEDS ORDERED: Lactated Ringers 1,000 ML IV ONE (20:27)
[2021-03-03] MEDS ORDERED: diphenhydrAMINE 50 MG/ML SDV IVPUSH ONE (20:28)
--- NOTE | 2021-03-03 20:48 | EDM.PDOC ---
ED HPI GENERAL MEDICAL PROBLEM - General Chief Complaint: Headache Stated Complaint: HEADACHE/POST COVID QUARANTINE Time Seen by Provider: 03/03/21 20:30 Source of Information: Reports: Patient History Limitations: Reports: No Limitations - History of Present Illness INITIAL COMMENTS - FREE TEXT/NARRATIVE: Patient is 55-year-old male with a past medical history of obesity and recent COVID-19 infection presenting with a chief complaint of frontal headache. Patient reports the headache is been ongoing for the past 2 to 3 days. Patient reports headache is located in the temples bilaterally. Initially was concerned that it might be a sinus infection but has not noticed any significant amount of congestion. His symptoms will COVID have resolved. He reports taking Excedrin for these headaches which did not seem to improve the headaches at all. Patient reports experiencing some tunnel vision today which was bilateral but this has subsequently resolved. He denies any nausea, vomiting, visual loss, weakness, numbness, and dizziness. Denies prior history of similar headaches. Headache Pain Score (Numeric/FACES): 10 - Related Data Allergies Allergy/AdvReac Type Severity Reaction Status Date / Time No Known Allergies Allergy Verified 03/03/21 18:42 Home Meds: Home Meds Multivitamin [Daily Jhonatan] 1 tab PO DAILY 03/17/18 [History] Cholecalciferol (Vitamin D3) [Vitamin D] 5,000 unit PO DAILY 12/06/18 [History] Cyanocobalamin (Vitamin B12) [Vitamin B12] 500 mcg PO DAILY 12/06/18 [History] Past Medical History HEENT History: Reports: Allergic Rhinitis, Impaired Vision Cardiovascular History: Reports: High Cholesterol Respiratory History: Reports: Sleep Apnea Other Respiratory History: seasonal allergies, wears C-PAP. Gastrointestinal History: Reports: PUD Other Gastrointestinal History: gastric ulcer-1996 Genitourinary History: Reports: BPH Other Genitourinary History: vasectomy Musculoskeletal History: Reports: None Neurological History: Reports: Vertigo Psychiatric History: Reports: None Endocrine/Metabolic History: Reports: Obesity/BMI 30+ Other Endocrine/Metabolic History: metabolic X syndrome Hematologic History: Reports: None Immunologic History: Reports: None Oncologic (Cancer) History: Reports: None Dermatologic History: Reports: None - Infectious Disease History Infectious Disease History: Reports: Chicken Pox, Novel Coronavirus - Past Surgical History HEENT Surgical History: Reports: Oral Surgery, Tonsillectomy GI Surgical History: Reports: Colonoscopy, EGD Male Surgical History: Reports: Vasectomy Social & Family History - Family History Family Medical History: No Pertinent Family History - Tobacco Use Tobacco Use Status *Q: Never Tobacco User - Caffeine Use Caffeine Use: Reports: None - Recreational Drug Use Recreational Drug Use: No - Living Situation & Occupation Living situation: Reports: , with Spouse 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) ED ROS GENERAL - Review of Systems Review Of Systems: See Below Free Text/Narrative/Comment: In addition to that documented in the HPI above, the additional ROS was obtained: Constitutional: Denies fevers or chills Eyes: Per HPI ENMT: Denies sore throat CV: Denies chest pain Resp: Denies SOB GI: Denies vomiting or diarrhea : Denies painful urination MSK: Denies recent trauma Skin: Denies new rashes Neuro: Denies new numbness or tingling or weakness Endocrine: Denies unexpected weight loss Heme: Denies bleeding disorders - Physical Exam Exam: See Below Text/Narrative:: I have reviewed the triage vital signs Const: Well nourished, well developed, appears stated age Eyes: Pupils Equal and reactive to light bilaterally, no conjunctival injection HENT: No signs of trauma or swelling, Neck supple without meningismus CV: Regular Rate Rhythm, Warm, well-perfused extremities RESP: Unlabored respiratory effort GI: soft, non-tender, non-distended, no masses MSK: No gross deformities appreciated Skin: Warm, dry. No rashes Neuro: Alert, furnace tapper II-XII are intact. Sensation and motor function of all 4 extremities intact. Psych: Appropriate mood and affect. Course - Vital Signs Last Recorded V/S: Last Vital Signs Temp 35.9 C L 03/03/21 18:40 Pulse 73 03/03/21 18:40 Resp 16 03/03/21 18:40 BP 164/99 H 03/03/21 18:40 Pulse Ox 99 03/03/21 18:40 - Orders/Labs/Meds Orders: Active Orders 24 hr Category Date Time Status Head wo Cont [CT] Stat Exams 03/03/21 20:37 Taken Meds: Medications Discontinued Medications Generic Name Dose Route Start Last Admin Trade Name Freq PRN Reason Stop Dose Admin Diphenhydramine HCl 25 mg 03/03/21 20:28 03/03/21 20:45 Diphenhydramine 50 Mg/Ml Sdv IVPUSH 03/03/21 20:29 25 mg ONETIME ONE Administration Lactated Ringer's 1,000 mls @ 1,000 mls/hr 03/03/21 20:27 03/03/21 20:42 Ringers, Lactated IV 03/03/21 21:26 1,000 mls/hr .BOLUS ONE Administration Ketorolac Tromethamine 15 mg 03/03/21 20:27 03/03/21 20:43 Ketorolac 15 Mg/Ml Sdv IVPUSH 03/03/21 20:28 15 mg ONETIME ONE Administration Metoclopramide HCl 10 mg 03/03/21 20:27 03/03/21 20:42 Metoclopramide 10 Mg/2 Ml Sdv IVPUSH 03/03/21 20:28 10 mg ONETIME ONE Administration Departure - Departure Time of Disposition: 22:45 Disposition: Home, Self-Care 01 Clinical Impression: Sinusitis - Discharge Information Instructions: Sinusitis, Adult, General Headache Without Cause, [id number] Referrals: Polina Franz PA-C [Primary Care Provider] - Forms: ED Department Discharge Sepsis Event Note (ED) - Evaluation Sepsis Screening Result: No Definite Risk - Focused Exam Vital Signs: Vital Signs Temp Pulse Resp BP Pulse Ox 03/03/21 18:40 35.9 C L 73 16 164/99 H 99 - My Orders Last 24 Hours: My Active Orders 03/03/21 20:37 Head wo Cont [CT] Stat - Assessment/Plan Last 24 Hours: My Active Orders 03/03/21 20:37 Head wo Cont [CT] Stat Assessment:: Patient is 55-year-old male presents emergency room with a complaint of headache. Patient had unremarkable ER course. Clinically well appearance and no neurologic deficits. CT of the head was performed to evaluate for presence of intracranial hemorrhage versus evidence of sinusitis. Brain CT was positive for sinusitis. At this point, no evidence of stroke, meningitis of encephalitis, subarachnoid hemorrhage. Patient will be discharged home with oral antibiotics. All questions were addressed and answered. Patient agrees with plan of care.
--- NOTE | 2021-03-04 15:05 | CT ---
Head CT Technique: Multiple axial sections through the brain were obtained. Intravenous contrast was not utilized. Reconstructed coronal and sagittal images were obtained. Comparison: No previous intracranial imaging is available. Findings: Ventricles along with basal cisterns and sulci over the convexities are within normal limits for the patient's age. No abnormal parenchymal densities are seen. No evidence of intracranial hemorrhage is seen. No midline shift or mass-effect is seen. Bone window settings were reviewed. There is near complete opacification of the left maxillary sinus. Moderate mucosal thickening is seen within the right maxillary sinus. Mucosal thickening is noted within the left ethmoid and left frontal sinus. Sphenoid sinus shows mild mucosal thickening. Mastoid sinuses are clear. No acute calvarial abnormality is appreciated. Small scalp lesion is noted within the upper left frontal region. Impression: 1. Diffuse mucosal thickening within the paranasal sinuses. Please correlate if patient has symptoms of acute sinusitis. 2. Small scalp lesion within the upper left frontal region which is believed to be incidental. 3. No acute intracranial abnormality is appreciated. Diagnostic code #3 I agree with preliminary report from [facility], finalized on 03/03/21, 11:38 PM CDT, code 1
== END 2021-03-03 23:05 | disposition home or self-care (01) ==
LOC: JD.ED 17:49
DX: J32.9 Chronic sinusitis, unspecified (principal); E66.9 Obesity, unspecified; Z68.42 Body mass index [BMI] 45.0-49.9, adult; Z79.899 Other long term (current) drug therapy
CPT/HCPCS: 70450; 96374; 96375; 99284; J1200; J1885; J2765; J7120

== ENCOUNTER 2022-11-14 06:27 | Emergency (ER) | payer BC ==
[2022-11-14] MEDS ORDERED: Sodium Chloride 0.9% 10 ML Syringe FLUSH PRN (08:48)
[2022-11-14 09:34] LABS: BASOPHILS ABSOLUTE AUTO 0.02 K/mm3 (0.01-0.08); BASOPHILS PERCENT AUTO 0.4 % (0.1-1.2); EOSINOPHILS ABSOLUTE AUTO 0.16 K/mm3 (0.04-0.54); EOSINOPHILS PERCENT AUTO 3.4 (0.8-7.0); HEMATOCRIT 44.3 % (40.1-51.0); HEMOGLOBIN 14.3 gm/dl (13.7-17.5); IMMATURE GRAN ABSOLUTE AUTO 0.01 K/mm3 (0.00-0.10); IMMATURE GRAN PERCENT AUTO 0.2 % (<=1.0); LYMPHOCYTES ABSOLUTE AUTO 1.35 K/mm3 (1.32-3.57); LYMPHOCYTES PERCENT AUTO 28.8 % (21.8-53.1); MEAN CORPUSCULAR HEMOGLOBIN 29.9 pg (25.7-32.2); MEAN CORPUSCULAR HGB CONC 32.3 g/dl (32.2-35.5); MEAN CORPUSCULAR VOLUME 92.7 fl (79.0-92.2); MEAN PLATELET VOLUME 9.9 fl (9.4-12.3); MONOCYTES PERCENT AUTO 10.7 % (5.3-12.2); NEUTROPHILS ABSOLUTE AUTO 2.64 K/mm3 (1.78-5.38); NEUTROPHILS PERCENT AUTO 56.5 % (34.0-67.9); PLATELET COUNT,PLT 189 K/mm3 (163-337); RED BLOOD CELL COUNT 4.78 M/mm3 (4.63-6.08); WHITE BLOOD CELL COUNT,WBC 4.68 K/mm3 (4.23-9.07)
[2022-11-14 09:52] LABS: D-DIMER QUANTITATIVE 0.26 mg/L (0.19-0.50)
[2022-11-14 09:53] LABS: PTT,PARTIAL THROMBOPLSTIN TIME 29.8 SECONDS (21.7-31.4)
[2022-11-14 09:56] LABS: INR 0.96; PROTHROMBIN TIME 10.3 SECONDS (9.7-12.0)
[2022-11-14 09:57] LABS: ALANINE AMINOTRANSFERASE,ALT 25 U/L (16-63); ALBUMIN 3.5 g/dl (3.4-5.0); ALKALINE PHOSPHATASE 64 U/L (46-116); ASPARTATE AMNIOTRANSFERASE,AST 22 U/L (15-37); BILIRUBIN TOTAL 0.5 mg/dL (0.2-1.0); BLOOD UREA NITROGEN,BUN 17 mg/dL (7-18); C-REACTIVE PROTEIN <0.2 mg/dL (<1.0); CALCIUM 8.5 mg/dL (8.5-10.1); CARBON DIOXIDE,CO2 26 mEq/L (21-32); CHLORIDE,CL 106 mEq/L (98-107); CREATINE KINASE,CK 362 U/L (39-308); EST CRCL DRUG DOSING (CG) 91.61 mL/min; ESTIMATED GFR 89 mL/min (>60); GLUCOSE RANDOM 112 mg/dL (70-99); MAGNESIUM 2.4 mg/dL (1.8-2.4); SODIUM,NA 139 mEq/L (136-145); TROPONIN I HIGH SENSITIVITY 7 pg/mL (<=76)
[2022-11-14 11:00] LABS: APPEARANCE,URINE CLEAR (Clear); BILIRUBIN,URINE NEGATIVE (Negative); COLOR,URINE YELLOW (Yellow); GLUCOSE,URINE NEGATIVE (Negative); KETONES,URINE NEGATIVE (Negative); LEUKOCYTE ESTERASE,URINE NEGATIVE (Negative); NITRITE,URINE NEGATIVE (Negative); OCCULT BLOOD,URINE NEGATIVE (Negative); PH,URINE 7.5 (5.0-8.0); PROTEIN,URINE 1+ (Negative)
[2022-11-14 11:10] LABS: BACTERIA,URINE FEW /hpf (FEW); EPITHELIAL CELLS,URINE NOT SEEN /hpf (0-5); MUCUS,URINE MODERATE /hpf (FEW); RBC,URINE 0-5 /hpf (0-5); WBC,URINE 0-5 /hpf (0-5)
[2022-11-14 11:11] LABS: AMORPHOUS SEDIMENT,URINE MODERATE /hpf (NOT SEEN)
[2022-11-14 12:39] VITALS: BP 130/78; PULSE 96
== END 2022-11-14 11:50 | disposition home or self-care (01) ==
LOC: JD.ED 06:27
DX: M25.572 Pain in left ankle and joints of left foot (principal); R00.1 Bradycardia, unspecified; R94.31 Abnormal electrocardiogram [ECG] [EKG]; J45.909 Unspecified asthma, uncomplicated; E66.9 Obesity, unspecified; Z86.16 Personal history of COVID-19; Z68.38 Body mass index [BMI] 38.0-38.9, adult; X50.1XXA Overexertion from prolonged static or awkward postures, initial encounter
CPT/HCPCS: 36415; 71045; 71045-26; 73590-26-LT; 73590-LT; 73610-26-LT; 73610-LT; 73630-26-LT; 73630-LT; 80053; 81001; 82550; 83735; 83880; 84484; 85025; 85379; 85610; 85652; 85730; 86140; 93005; 93010; 93226; 93971-26-LT; 93971-LT; 99284

== ENCOUNTER 2023-03-14 16:19 | Emergency (ER) | payer OTHER, BC ==
[2023-03-14 16:35] VITALS: BP 162/102; PULSE 76
[2023-03-14] MEDS ORDERED: Lidocaine 1% 5 ML VIAL INJECT ONE (16:45)
[2023-03-14] MEDS ORDERED: Diphtheria,Pertussis(Acell),Tetanus Vaccine 0.5 ML Syringe IM ONE (16:58)
[2023-03-14] MEDS ORDERED: Lidocaine 1% 10 ML MDV ONE (17:01)
[2023-03-14] MEDS ORDERED: Lidocaine 1% 10 ML MDV INJECT ONE (17:10)
== END 2023-03-14 20:30 | disposition home or self-care (01) ==
LOC: JD.ED 16:19
DX: S61.216A Laceration without foreign body of right little finger without damage to nail, initial encounter (principal); E66.9 Obesity, unspecified; Z68.41 Body mass index [BMI] 40.0-44.9, adult; Z23 Encounter for immunization; Z86.16 Personal history of COVID-19; W27.8XXA Contact with other nonpowered hand tool, initial encounter
CPT/HCPCS: 12001; 73140-26-F9; 73140-F9; 90471; 90715; 99283-25

== ENCOUNTER 2023-11-25 09:34 | Emergency (ER) | payer BC, OTHER ==
[2023-11-25 12:17] VITALS: BP 152/83; PULSE 72
== END 2023-11-25 11:50 | disposition home or self-care (01) ==
LOC: JD.ED 09:34
DX: S83.92XA Sprain of unspecified site of left knee, initial encounter (principal); J44.9 Chronic obstructive pulmonary disease, unspecified; E66.9 Obesity, unspecified; Z79.52 Long term (current) use of systemic steroids; Z68.42 Body mass index [BMI] 45.0-49.9, adult; X58.XXXA Exposure to other specified factors, initial encounter; Y99.0 Civilian activity done for income or pay
CPT/HCPCS: 73564-26-LT; 73564-LT; 99283

== ENCOUNTER 2023-12-22 09:33 | Day surgery (SDC) | payer BC ==
[~2023-12-22 09:33] MED LIST: Dexamethasone 4 MG/ML 5 ML MDV ONE; Ketorolac 30 MG/ML SDV ONE; Lidocaine 1% 5 ML VIAL ONE; Lidocaine 2% 5 ML SDV ONE; Ondansetron 4 MG/2 ML SDV ONE; Propofol 200 MG/20 ML SDV ONE; Sodium Chloride 0.9% 10 ML Syringe FLUSH PRN; Sodium Chloride 0.9% 10 ML Syringe FLUSH SCH; ceFAZolin 2 GM Vial ONE; dexmedeTOMIDine HCl 200 MCG/2 ML SDV ONE
[2023-12-22] MEDS ORDERED: fentaNYL 100 MCG/2 ML SDV ONE (09:56)
[2023-12-22] MEDS: Lactated Ringers 1,000 ML IV SCH (10:00)
[2023-12-22] MEDS ORDERED: Ketorolac 30 MG/ML SDV ONE (11:25)
[2023-12-22] MEDS ORDERED: ceFAZolin 2 GM Vial ONE (12:04)
[2023-12-22] MEDS: Acetaminophen 325 MG Tab PO SCH (12:20)
[2023-12-22] MEDS: Albuterol/Ipratropium 3.0-0.5 MG/3 ML Neb Soln NEB ONE (12:20)
[2023-12-22] MEDS: Famotidine 20 MG/2 ML SDV IVPUSH SCH (12:20)
[2023-12-22] MEDS: Bupivacaine 0.25% 10 ML SDV ONE (12:45)
[2023-12-22] MEDS: EPINEPHrine 1 MG/ML SDV ONE (12:45)
[2023-12-22] MEDS ORDERED: Ondansetron 4 MG/2 ML SDV IVPUSH PRN (13:24)
[2023-12-22] MEDS: fentaNYL 100 MCG/2 ML SDV IVPUSH PRN (13:29)
[2023-12-22] MEDS: HYDROmorphone 0.5 MG/0.5 ML Syringe IVPUSH PRN ×2 (13:35→14:26)
[2023-12-22] MEDS ORDERED: HYDROmorphone 0.5 MG/0.5 ML Syringe IVPUSH PRN (14:29)
[2023-12-22] MEDS ORDERED: Scopalamine 1mg/3day Transdermal Patch TOP ONE (14:45)
[2023-12-22] MEDS ORDERED: Ondansetron 4 MG Tab.DIS PO ONE (15:00)
[2023-12-22 16:58] VITALS: BP 143/87; PULSE 76
[2023-12-22] MEDS: Acetaminophen/HYDROcodone 325-5 MG Tab PO PRN (17:00)
== END 2023-12-22 16:45 | disposition home or self-care (01) ==
LOC: JD.SDS 09:33
PROVIDERS: ATTEND Orthopaedic Surgery
DX: S83.212A Bucket-handle tear of medial meniscus, current injury, left knee, initial encounter (principal); J45.50 Severe persistent asthma, uncomplicated; J44.9 Chronic obstructive pulmonary disease, unspecified; E66.01 Morbid (severe) obesity due to excess calories; Z68.42 Body mass index [BMI] 45.0-49.9, adult; E78.00 Pure hypercholesterolemia, unspecified; Z79.899 Other long term (current) drug therapy; X58.XXXA Exposure to other specified factors, initial encounter
CPT/HCPCS: 29881; A9270; J0171; J0665; J0690; J1100; J1170; J1885; J2405; J2704; J3010; J3490; J7120; 01402; J7620-GY